=== PATIENT | female | born 1930 | race Caucasian/White ===

== ENCOUNTER 2017-02-27 15:53 | Inpatient (IN) | payer OTHER ==
[2017-02-27] MEDS ORDERED: ASPIRIN 81 MG CHEWABLE TABLETS PO ONE (16:22)
--- NOTE | 2017-02-27 16:22 | PDOC ---
History of Present Illness <Joanna Rasmussen - Last Filed: 02/27/17 20:26> <Stephanie Pop - Last Filed: 02/27/17 20:37> - General Chief Complaint: Syncope/Near Syncope Stated Complaint: Syncope/Near Syncope - History of Present Illness Initial Comments: 02/27/17 17:11 The patient is an 86 year old female with a past medical hx of CAD, s/p CABG, NIDDM, HTN, and HLD, heart failure (on digoxin), vertigo who presents to the ED via EMS with her yarn wrapper for evaluation of a syncopal episode this afternoon. The yarn wrapper reports she had a steroid injection into her right knee this afternoon by her Orthopedist. She was assisting the patient into the vehicle after the injection when the patient had a syncopal episode. The yarn wrapper held the patient up so she did not hit her head. The yarn wrapper notes the patient is usually alert and oriented x3 but she has been having episodes of confusion lately. The patient is a poor historian. The patient has complaints of chronic knee and back pain. The patient denies any chest pain, SOB, nausea, vomiting, abdominal pain. Surgical: CABG, cholecystectomy (Stephanie Pop) Past History - Past Medical History Cardiac Disorders: Yes CHF: Yes Diabetes: Yes HTN: Yes Hypercholesterolemia: Yes - Surgical History Cardiac Surgery: Yes ([facility]PASS) Cholecystectomy: Yes - Psycho/Social/Smoking Cessation Hx Anxiety: No Suicidal Ideation: No Smoking Status: No Smoking History: Never smoked Have you smoked in the past 12 months: No Number of Cigarettes Smoked Daily: 0 Hx Alcohol Use: No Drug/Substance Use Hx: No Substance Use Type: None Hx Substance Use Treatment: No <Joanna Rasmussen - Last Filed: 02/27/17 20:26> <Stephanie Pop - Last Filed: 02/27/17 20:37> - Past Medical History Allergies/Adverse Reactions: Allergies Allergy/AdvReac Type Severity Reaction Status Date / Time No Known Allergies Allergy Verified 02/27/17 16:33 Home Medications: Ambulatory Orders Aspirin [ASA -] 81 mg PO DAILY 11/24/12 Metoprolol Tartrate [Lopressor -] 50 mg PO BID 11/24/12 Multivitamin [Multivitamins] 1 each PO DAILY 11/24/12 Simvastatin [Zocor -] 40 mg PO DAILY 11/24/12 Sitagliptin Phos/Metformin HCl [Janumet 50-1,000 mg Tablet] 1 each PO BID Fenofibrate 160 mg PO DAILY 05/25/14 Montelukast Na [Singulair -] 10 mg PO HS 07/21/15 Esomeprazole Mag Trihydrate [Nexium] 20 mg PO DAILY 11/04/15 Meclizine HCl 25 mg PO TID 11/04/15 Cephalexin Monohydrate [Keflex -] 500 mg PO BID #14 capsule 04/15/16 Review of Systems <GradyJoannacarline Snider - Last Filed: 02/27/17 20:26> - Review of Systems Able to Perform ROS?: Yes <Stephanie Pop - Last Filed: 02/27/17 20:37> - Review of Systems Comments:: 02/27/17 17:11 CONSTITUTIONAL: +Confusion. Absent: fever, chills, diaphoresis, generalized weakness, malaise, loss of appetite HEENT: Absent: rhinorrhea, nasal congestion, throat pain, throat swelling, difficulty swallowing, mouth swelling, ear pain, eye pain, visual Changes CARDIOVASCULAR: +Syncope. Absent: chest pain, palpitations, irregular heart rate, lightheadedness, peripheral edema RESPIRATORY: Absent: cough, shortness of breath, dyspnea with exertion, orthopnea, wheezing, stridor, hemoptysis GASTROINTESTINAL: Absent: abdominal pain, abdominal distension, nausea, vomiting, diarrhea, constipation, melena, hematochezia GENITOURINARY: Absent: dysuria, frequency, urgency, hesitancy, hematuria, flank pain, genital pain MUSCULOSKELETAL: +Knee pain, back pain. Absent: joint swelling SKIN: Absent: rash, itching, pallor NEUROLOGIC: Absent: headache, focal weakness or paresthesias, dizziness, unsteady gait, seizure, bladder or bowel incontinence PSYCHIATRIC: Absent: anxiety, depression, suicidal or homicidal ideation, hallucinations. ( Stephanie Pop) *Physical Exam <Joanna Rasmussen - Last Filed: 02/27/17 20:26> <Stephanie Pop - Last Filed: 02/27/17 20:37> - Vital Signs Last Vital Signs Temp Pulse Resp BP Pulse Ox 99.3 F 74 18 185/73 100 02/27/17 15:53 02/27/17 15:53 02/27/17 15:53 02/27/17 15:53 02/27/17 15:53 - Physical Exam Comments: 02/27/17 17:11 GENERAL: +Global confusion, appropriate when answering questions. Well developed, well nourished. Awake. No acute distress. HEENT: Normocephalic, atraumatic. PERRLA, EOMI. No conjunctival pallor. Sclera are non- icteric. Moist mucous membranes. Oropharynx is clear. NECK: Supple. Full ROM. No JVD. Carotid pulses 2+ and symmetric, without bruits. No thyromegaly. No lymphadenopathy. CARDIOVASCULAR: +Holosystolic murmur. Regular rate. No rubs, or gallops. Distal pulses are 2+ and symmetric. PULMONARY: No evidence of respiratory distress. Lungs clear to auscultation bilaterally. No wheezing, rales or rhonchi. ABDOMINAL: +Protuberant. Soft. Non-tender. No rebound or guarding. No organomegaly. Normoactive bowel sounds. MUSCULOSKELETAL Normal range of motion at all joints. No bony deformities or tenderness. No CVA tenderness. EXTREMITIES: +Able to move all extremities. No cyanosis. No clubbing. No edema. No calf tenderness. SKIN: Warm and dry. Normal capillary refill. No rashes. No jaundice. NEUROLOGICAL: +Able to swallow water, alert, awake. Cranial nerves 2-12 intact. No deficits to light touch and temperature in face, upper extremities and lower extremities. No motor deficits in the in face, upper extremities and lower extremities. PSYCHIATRIC: Cooperative. (Stephanie Pop) Heart Score/ECG Review <Joanna Rasmussen - Last Filed: 02/27/17 20:26> <Stephanie Pop - Last Filed: 02/27/17 20:37> - ECG Impressions Comment:: 02/27/17 17:[address] Rasmussen NSR at a rate of 75 bpm LVH RBBB No change from prior (07/09/16) (Stephanie Pop) ED Treatment Course - LABORATORY CBC & Chemistry Diagram: 02/27/17 16:50 02/27/17 16:50 <Joanna Rasmussen - Last Filed: 02/27/17 20:26> - LABORATORY CBC & Chemistry Diagram: 02/27/17 16:50 02/27/17 16:50 <DimitriosmaryStephanie - Last Filed: 02/27/17 20:37> - ADDITIONAL ORDERS Additional order review: Laboratory Results 02/27/17 02/27/17 02/27/17 17:04 16:50 16:50 INR 1.03 Sodium 141 Potassium 4.5 Chloride 108 H Carbon Dioxide 24 Anion Gap 9 BUN 29 H Creatinine 1.3 H Creat Clearance w eGFR 38.66 POC Glucometer [phone] Random Glucose 108 H D Calcium 9.1 Magnesium 2.3 D Total Bilirubin 0.3 AST 22 ALT 20 D Alkaline Phosphatase 63 D Creatine Kinase 237 H D CK-MB (CK-2) 1.333 Troponin I < 0.02 B-Natriuretic Peptide 903.91 H Total Protein 7.1 Albumin 3.9 02/27/17 02/27/17 17:04 16:50 RBC 3.70 MCV 87.7 MCHC 32.7 RDW 14.0 MPV 7.9 Neutrophils % 62.3 D Lymphocytes % 26.2 D Monocytes % 5.3 Eosinophils % 5.5 H D Basophils % 0.7 POC Glucometer [id number] - RADIOLOGY Radiograph Interpretation: 02/27/17 18:30 Chest X-Ray Comparison studies: November 04, 2015 Trachea midline with mild cardiomegaly and mitral annulus calcification with aortic valve prosthesis in position. Mild uncoiling calcified aortic arch with no acute mediastinal widening. No congestive change or edema in the lungs No infiltrates, mass or effusion identified Degenerative changes noted in the shoulders No pneumothorax or rib fracture Impression: No infiltrate or edema in the lungs with no congestive change or pneumonia identified. No free air beneath the diaphragm No acute changes or suspicious findings identified. Reported By: Parker Retana MD 02/27/17 1708 02/27/17 18:56 CT brain without contrast Comparison studies: April 15, 2016 Clinical history: Syncope Axial imaging completed with comparison to previous exam demonstrating no evidence of acute intracranial pathology Moderate degree of diffuse cerebral atrophy with sulcal widening and ventricular dilation. Hypodense changes noted within the periventricular white matter consistent with chronic small vessel ischemia No evidence of fracture or acute bony abnormalities No suspicious osseous lesion with normal aeration in the sinuses and mastoids with a small osteoma in the left frontal sinus noted incidentally measuring 0.4 cm Normal region of orbits No hyperdense vessel No subdural or subarachnoid hemorrhage identified Impression: No CT evidence of mass, hemorrhage or acute vascular territory infarction. No acute interval changes seen since previous exam. Reported By: Parker Retana MD 02/27/17 [id number] (Stephanie Pop) - Medications Given in the ED: ED Medications Discontinued Medications Generic Name Dose Route Start Last Admin Trade Name Sanya PRN Reason Stop Dose Admin Aspirin 162 mg 02/27/17 16:22 02/27/17 16:52 Asa - PO 02/27/17 16:23 162 mg ONCE ONE Administration Medical Decision Making <Joanna Rasmussen - Last Filed: 02/27/17 20:26> <Stephanie Pop - Last Filed: 02/27/17 20:37> - Medical Decision Making 02/27/17 17:07 This 86-year-old female was brought in by ambulance for syncope. She had been to send received an injection in her right knee. Upon leaving the doctor's office. She was getting into a cab and she had a syncopal episode. Her aide was standing beside her and was able to sit her down. Therefore, she did not hit her head She has no focal neural deficits, but rather more of a global confusion. She is using all her extremities. She was able to hold a cup and drink water and swallow her pills. However, when asked about specific details of her fainting episode. She does not recall anything and was not aware that she was actually in the hospital BGM was in the 140s EKG was sinus rhythm in the 70s with right bundle branch block and an old LVH. There was no change since her EKG in 2016 She does complain of the leg and back pain and these are chronic complaints. She does not have any complaint of shortness of breath, chest pain Patient is not hypoglycemic. We will pursue cardiac workup and also rule out infection UTIs as a source of her confusion (Joanna Rasmussen) 02/27/17 20:[address] Hawkins at 20:08, awaiting call back Dr. Hawkins called back at 20:18, patients case was discussed (Stephanie Pop) *DC/Admit/Observation/Transfer - Discharge Dispostion Admit: Yes <Joanna Rasmussen - Last Filed: 02/27/17 20:26> <Stephanie Pop - Last Filed: 02/27/17 20:37> Diagnosis at time of Disposition: Syncope Qualifiers: Syncope type: unspecified Qualified Code(s): R55 - Syncope and collapse - Referrals Referrals: Noel Mcgee MD [Primary Care Provider] - - Attestations Scribe Attestion: 02/27/17 17:02 Documentation prepared by Stephanie Pop, acting as medical translator for Joanna Rasmussen MD/. (Stephanie Pop)
[2017-02-27] MEDS ORDERED: ASPIRIN 81 MG CHEWABLE TABLETS ONE (16:37)
[2017-02-27 17:22] LABS: BASOPHIL 0.7 % (0-2.0); EOSINOPHIL 5.5 % (0-4.5); MCH 28.6 pg (25.7-33.7); MCHC 32.7 g/dl (32.0-36.0); MEAN CELL VOLUME 87.7 fl (80-96); MEAN PLT VOLUME 7.9 fl (7.5-11.1); NEUTROPHILS 62.3 % (42.8-82.8); PLATELET COUNT 203 K/MM3 (134-434); WHITE BLOOD COUNT 6.9 K/mm3 (4.0-10.0)
[2017-02-27 17:47] LABS: INR 1.03 (0.82-1.09); PROTHROMBIN TIME (PATIENT) 11.3 SEC (9.98-11.88)
[2017-02-27 17:59] LABS: ALBUMIN 3.9 g/dl (3.4-5.0); ANION GAP 9 (8-16); BILIRUBIN,TOTAL 0.3 mg/dL (0.2-1.0); CALCIUM 9.1 mg/dL (8.5-10.1); CO2 24 mmol/L (21-32); CREATININE 1.3 mg/dL (0.55-1.02); GLUCOSE,RANDOM 108 mg/dL (74-106); MAGNESIUM 2.3 mg/dL (1.8-2.4); SGOT/AST 22 U/L (15-37); SGPT/ALT 20 U/L (12-78); TOT PROT 7.1 g/dl (6.4-8.2)
[2017-02-27 18:01] LABS: ALK PHOS 63 U/L (45-117); TROPONIN I < 0.02 ng/ml (0.00-0.05)
[2017-02-27] MEDS ORDERED: METOPROLOL TARTRATE 25 MG TABLET (FP) PO SCH (22:00)
[2017-02-27 22:30] LABS: URINE APPEARANCE CLEAR; URINE BILIRUBIN NEGATIVE (NEGATIVE); URINE COLOR LTYELLOW; URINE GLUCOSE (UA) NEGATIVE (NEGATIVE); URINE KETONE NEGATIVE (NEGATIVE); URINE LEUK ESTERASE NEGATIVE (NEGATIVE); URINE NITRITE NEGATIVE (NEGATIVE); URINE UROBILINOGEN NEGATIVE E.U./dl (0.2-1.0)
[2017-02-27] MEDS ORDERED: METOPROLOL TARTRATE 50 MG TABLET (FP) ONE (22:41)
[2017-02-27] MEDS ORDERED: HEPARIN NA (PORCINE) 5,000 UNITS/ML 1ML VIAL ONE ×2 (22:41→22:42)
[2017-02-27] MEDS ORDERED: MONTELUKAST NA 10 MG TABLET ONE (22:41)
[2017-02-27 22:42] LABS: URINE BACTERIA RARE /hpf (NONE SEEN); URINE BLOOD 2+ (NEGATIVE); URINE MUCUS RARE; URINE PROTEIN 1+ (NEGATIVE); URINE RBC 3 /hpf (0-3); URINE WBC 2 /hpf (3-5)
[2017-02-27] MEDS: MONTELUKAST NA 10 MG TABLET PO SCH (22:56)
[2017-02-27] MEDS: HEPARIN NA (PORCINE) 5,000 UNITS/ML 1ML VIAL SQ SCH (22:56)
[2017-02-28 03:46] VITALS: BMI 28.9
[2017-02-28 08:19] LABS: CHOLESTEROL 202 mg/dL (50-200); LDL CHOLESTEROL (ONLY SJRH) 111 mg/dL (5-100)
[2017-02-28 08:27] LABS: TROPONIN I < 0.02 ng/ml (0.00-0.05)
--- NOTE | 2017-02-28 10:17 | HP ---
Admitting History and Physical - Primary Care Physician PCP: Noel Mcgee - Admission Chief Complaint: Syncope History of Present Illness: ER HISTORY - General Chief Complaint: Syncope/Near Syncope Stated Complaint: Syncope/Near Syncope - History of Present Illness Initial Comments: 02/27/17 17:11 The patient is an 86 year old female with a past medical hx of CAD, s/p CABG, NIDDM, HTN, and HLD, heart failure (on digoxin), vertigo who presents to the ED via EMS with her oscillograph technician for evaluation of a syncopal episode this afternoon. The oscillograph technician reports she had a steroid injection into her right knee this afternoon by her Orthopedist. She was assisting the patient into the vehicle after the injection when the patient had a syncopal episode. The oscillograph technician held the patient up so she did not hit her head. The oscillograph technician notes the patient is usually alert and oriented x3 but she has been having episodes of confusion lately. The patient is a poor historian. The patient has complaints of chronic knee and back pain. The patient denies any chest pain, SOB, nausea, vomiting, abdominal pain. Surgical: CABG, cholecystectomy (Stephanie Pop) Pt examined by me in Telemetry Awake and alert speaks mostly Sinhala Denies any complaints except for right knee pain where she had injection placed Denies dysuria, chest pain , palpitations and headaches History Source: Patient Limitations to Obtaining History: No Limitations - Past Medical History Cardiovascular: Yes: CAD (CABG), HTN, Hyperlipdemia, Murmur Musculoskeletal: Yes: Osteoarthritis Endocrine: Yes: Diabetes Mellitus - Past Surgical History Past Surgical History: Yes: CABG, Cholecystectomy - Smoking History Smoking history: Never smoked Have you smoked in the past 12 months: No Aproximately how many cigarettes per day: 0 - Alcohol/Substance Use Hx Alcohol Use: No Home Medications - Allergies Allergies/Adverse Reactions: Allergies Allergy/AdvReac Type Severity Reaction Status Date / Time No Known Allergies Allergy Verified 02/27/17 16:33 - Home Medications Home Medications: Ambulatory Orders Unobtainable [Unobtainable] 02/27/17 Review of Systems - Review of Systems Constitutional: denies: Chills, Fever Cardiovascular: denies: Chest Pain, Palpitations, Shortness of Breath Respiratory: denies: Cough, SOB Musculoskeletal: reports: Joint Pain Physical Examination Vital Signs: Vital Signs Temperature 97.7 F 04/19/17 10:00 Pulse Rate 66 02/28/17 10:00 Respiratory Rate 18 02/28/17 10:00 Blood Pressure 133/74 02/28/17 10:00 O2 Sat by Pulse Oximetry (%) 100 02/28/17 02:40 Constitutional: Yes: No Distress, Calm Cardiovascular: Yes: Regular Rate and Rhythm, Murmur Respiratory: Yes: CTA Bilaterally Gastrointestinal: Yes: Normal Bowel Sounds, Soft, Abdomen, Obese. No: Distention, Tenderness Extremities: Yes: Other (right knee effusion- tender where she had injection , not hot) Edema: No Neurological: Yes: Alert, Oriented Psychiatric: Yes: WNL Labs: Laboratory Last Values WBC 6.9 K/mm3 (4.0-10.0) D 02/27/17 16:50 RBC 3.70 M/mm3 (3.60-5.2) 02/27/17 16:50 Hgb 10.6 GM/dL (10.7-15.3) L 02/27/17 16:50 Hct 32.4 % (32.4-45.2) 02/27/17 16:50 MCV 87.7 fl (80-96) 02/27/17 16:50 MCHC 32.7 g/dl (32.0-36.0) 02/27/17 16:50 RDW 14.0 % (11.6-15.6) 02/27/17 16:50 Plt Count 203 K/MM3 (134-434) 02/27/17 16:50 MPV 7.9 fl (7.5-11.1) 02/27/17 16:50 Neutrophils % 62.3 % (42.8-82.8) D 02/27/17 16:50 Lymphocytes % 26.2 % (8-40) D 02/27/17 16:50 Monocytes % 5.3 % (3.8-10.2) 02/27/17 16:50 Eosinophils % 5.5 % (0-4.5) H D 02/27/17 16:50 Basophils % 0.7 % (0-2.0) 02/27/17 16:50 INR 1.03 (0.82-1.09) 02/27/17 16:50 Sodium 141 mmol/L (136-145) 02/27/17 16:50 Potassium 4.5 mmol/L (3.5-5.1) 02/27/17 16:50 Chloride 108 mmol/L (98-107) H 02/27/17 16:50 Carbon Dioxide 24 mmol/L (21-32) 02/27/17 16:50 Anion Gap 9 (8-16) 02/27/17 16:50 BUN 29 mg/dL (7-18) H 02/27/17 16:50 Creatinine 1.3 mg/dL (0.55-1.02) H 02/27/17 16:50 Creat Clearance w eGFR 38.66 (>60) 02/27/17 16:50 POC Glucometer 141 UNITS (()) 02/28/17 17:01 Random Glucose 108 mg/dL (74-106) H D 02/27/17 16:50 Calcium 9.1 mg/dL (8.5-10.1) 02/27/17 16:50 Magnesium 2.3 mg/dL (1.8-2.4) D 02/27/17 16:50 Total Bilirubin 0.3 mg/dL (0.2-1.0) 02/27/17 16:50 AST 22 U/L (15-37) 02/27/17 16:50 ALT 20 U/L (12-78) D 02/27/17 16:50 Alkaline Phosphatase 63 U/L (45-117) D 02/27/17 16:50 Creatine Kinase 311 IU/L (26-192) H D 02/28/17 07:00 CK-MB (CK-2) 1.333 ng/ml (0.5-3.6) 02/27/17 16:50 Troponin I < 0.02 ng/ml (0.00-0.05) 02/28/17 07:00 B-Natriuretic Peptide 903.91 pg/ml (5-450) H 02/27/17 16:50 Total Protein 7.1 g/dl (6.4-8.2) 02/27/17 16:50 Albumin 3.9 g/dl (3.4-5.0) 02/27/17 16:50 Triglycerides 85 mg/dL (35-160) 02/28/17 07:00 Cholesterol 202 mg/dL (50-200) H 02/28/17 07:00 Total LDL Cholesterol 111 mg/dL (5-100) H 02/28/17 07:00 HDL Cholesterol 75 mg/dL (40-60) H 02/28/17 07:00 TSH 0.60 uIU/ml (0.358-3.74) 02/28/17 07:00 Urine Color Ltyellow 02/27/17 17:38 Urine Appearance Clear 02/27/17 17:38 Urine pH 5.0 (5.0-8.0) 02/27/17 17:38 Ur Specific [place] 1.012 (1.001-1.035) 02/27/17 17:38 Urine Protein 1+ (NEGATIVE) H 02/27/17 17:38 Urine Glucose (UA) Negative (NEGATIVE) 02/27/17 17:38 Urine Ketones Negative (NEGATIVE) 02/27/17 17:38 Urine Blood 2+ (NEGATIVE) H 02/27/17 17:38 Urine Nitrite Negative (NEGATIVE) 02/27/17 17:38 Urine Bilirubin Negative (NEGATIVE) 02/27/17 17:38 Urine Urobilinogen Negative E.U./dl (0.2-1.0) 02/27/17 17:38 Ur Leukocyte Esterase Negative (NEGATIVE) 02/27/17 17:38 Urine RBC 3 /hpf (0-3) 02/27/17 17:38 Urine WBC 2 /hpf (3-5) 02/27/17 17:38 Urine Bacteria Rare /hpf (NONE SEEN) 02/27/17 17:38 Urine Mucus Rare 02/27/17 17:38 Imaging - Results Chest X-ray: Image Reviewed (no infiltrate) Cat Scan: Report Reviewed (head ct negative) Ultrasound: Report Reviewed (carotid doppler- no stenosis) EKG: Image Reviewed (NSR, bifascicular block) Problem List - Problems (1) CAD (coronary artery disease) Code(s): I25.10 - ATHSCL HEART DISEASE OF [place] CORONARY ARTERY W/O ANG PCTRS Qualifiers: Coronary Disease-Associated Artery/Lesion type: [place] artery [place] vs. transplanted heart: [place] heart Associated angina: without angina Qualified Code(s): I25.10 - Atherosclerotic heart disease of [place] coronary artery without angina pectoris (2) CKD (chronic kidney disease) Code(s): N18.9 - CHRONIC KIDNEY DISEASE, UNSPECIFIED Qualifiers: Chronic kidney disease stage: stage 2 (mild) Qualified Code(s): N18.2 - Chronic kidney disease, stage 2 (mild) (3) S/P CABG (coronary artery bypass graft) Code(s): Z95.1 - PRESENCE OF AORTOCORONARY BYPASS GRAFT (4) Syncope Code(s): R55 - SYNCOPE AND COLLAPSE Qualifiers: Syncope type: unspecified Qualified Code(s): R55 - Syncope and collapse Assessment/Plan PLAN -- likely Vasovagal syncope -- negative Orthostasis -- Urine cultures pending, will treat empiricaly with Rocephin -- Cardiology evaluation -- check Echo -- continue with meds -- PT eval
[2017-02-28] MEDS: CEFTRIAXONE 50 ML IVPB SCH (10:18)
[2017-02-28] MEDS: PANTOPRAZOLE 20 MG TABLET (FP) PO SCH (10:21)
[2017-02-28] MEDS: ASPIRIN 81 MG CHEWABLE TABLETS PO SCH (10:21)
[2017-02-28] MEDS: MULTIVITAMINS (DAILY MVI) TABLET (FP) PO SCH (10:21)
[2017-02-28] MEDS: HEPARIN NA (PORCINE) 5,000 UNITS/ML 1ML VIAL SQ SCH ×2 (10:21→21:47)
[2017-02-28] MEDS: METOPROLOL TARTRATE 50 MG TABLET (FP) PO SCH ×2 (10:21→21:47)
--- NOTE | 2017-02-28 10:32 | PN ---
Progress Note (short form) - Note Progress Note: IMP: Syncope CAD s/p CABG DM Abnl ECG REC: Tele x 24 hours r/o arrhythmia or higher grade conduction dz Echo to r/o , murmur auscultated Hydrate gently
--- NOTE | 2017-02-28 11:47 | CONS ---
DATE OF CONSULTATION: 02/28/2017 REQUESTING PHYSICIAN: Angela Hogue MD REASON FOR CONSULTATION: Syncope. HISTORY OF PRESENT ILLNESS: This 86-year-old female with past history of CAD status post CABG, hypertension, diabetes, CHF, chronic vertigo, was brought to the ER via EMS after her rehabilitation construction specialist witnessed a syncopal episode after the patient had received a steroid injection in her right knee earlier in the afternoon. According to ER records, the patient was being assisted to her vehicle after the injection when she developed lightheadedness and had a syncopal episode. The patient has no recollection of this episode and denies chest pain or shortness of breath. The patient was held up by the rehabilitation construction specialist. There was no reported history of head trauma. CT scan of the head in the ER showed no acute findings. There is also a report of some recent confusion. Carotid duplex was performed and showed no significant stenosis. The patient was noted to have an abnormal baseline EKG with artifact, but seems to show sinus rhythm with right bundle branch block and left anterior hemiblock. PAST MEDICAL HISTORY: As above and also includes prior cholecystectomy. ALLERGIES: She has no known drug allergies. CURRENT MEDICATIONS: Include aspirin 81 daily, Lipitor 20 at bedtime, ceftriaxone IV started here in hospital, subcutaneous heparin, Lopressor 50 b.i.d., Singulair, multivitamin, and Protonix. FAMILY HISTORY: Noncontributory. SOCIAL HISTORY: Nonsmoker. PHYSICAL EXAMINATION: Vital signs: Afebrile, temperature 97.7, pulse 66, blood pressure 133/74, O2 100 on 2 L. HEENT: Anicteric. Neck: No bruits. Heart: S1, S2 regular. Soft systolic murmur, right sternal border. Previous median sternotomy clean, dry, and intact. Chest: Clear. Abdomen: Soft, nontender. Extremities: No edema. DIAGNOSTIC DATA: Head CT showed no acute findings. Chest x-ray showed no clear infiltrate. Carotid duplex showed no stenosis. White count 6.9, hematocrit 32, platelets 203. INR 1.03. Sodium 141, potassium 4.5, BUN 29, creatinine 1.3. CK 237, 311. Troponins are negative x2 sets. BNP was mildly elevated at 903. IMPRESSION: 1. Syncopal episode. 2. History of coronary artery disease status post coronary artery bypass grafting. 3. Diabetes. 4. Abnormal electrocardiogram. PLAN: 1. Continue telemetry for 24 hours to rule out higher grade AV block. 2. Follow up results of echocardiogram today to rule out aortic stenosis as there is a murmur auscultated on examination. The location and character of the murmur sound more like tricuspid regurgitation, but ruling out valvular disease is prudent. 3. Hydrate gently as BUN/creatinine ratio indicates slight prerenal azotemia, she does not appear volume overloaded on examination. The BNP value does not seem helpful in this clinical situation given her chronic history of CHF, it may represent her baseline. 4. Follow blood cultures and antibiotics as per primary medical team. Thank you for the consultation. SID FINN M.D. [id number]
--- NOTE | 2017-02-28 14:33 | EKG ---
Test Reason : Blood Pressure : / mmHG Vent. Rate : 075 BPM Atrial Rate : 075 BPM P-R Int : 186 ms QRS Dur : 156 ms QT Int : 448 ms P-R-T Axes : 062 -61 085 degrees QTc Int : 500 ms NORMAL SINUS RHYTHM RIGHT BUNDLE BRANCH BLOCK LEFT ANTERIOR FASCICULAR BLOCK BIFASCICULAR BLOCK LEFT VENTRICULAR HYPERTROPHY WITH REPOLARIZATION ABNORMALITY ABNORMAL ECG WHEN COMPARED WITH ECG OF 09-JUL-2016 14:21, CT INTERVAL HAS DECREASED Confirmed by MONICA MYRICK MD ([id number]) on 02/28/2017 2:32:37 PM Referred By: Confirmed By:MONICA MYRICK MD
[2017-02-28] MEDS: MONTELUKAST NA 10 MG TABLET PO SCH (21:47)
[2017-02-28] MEDS ORDERED: ATORVASTATIN CA 20 MG TABLET (FP) PO SCH (22:00)
--- NOTE | 2017-03-01 09:21 | PN ---
Progress Note, Physician Chief Complaint: Echo: Moderate to severe MR Moderate to severe TELE: Reviewed, baseline artifact. Appears to be NSR with baseline RBBB and frequent APCs History of Present Illness: More alert today - Current Medication List Current Medications: Active Medications Aspirin (Asa -) 81 mg PO DAILY [facility] Last Admin: 02/28/17 10:21 Dose: 81 mg Atorvastatin Calcium (Lipitor -) 20 mg PO HS [facility] Last Admin: 02/28/17 21:47 Dose: 20 mg Heparin Sodium (Porcine) (Heparin -) 5,000 unit SQ BID [facility] Last Admin: 02/28/17 21:47 Dose: 5,000 unit Ceftriaxone Sodium (Rocephin 1gm Ivpb (Pre-Docked)) 50 mls @ 100 mls/hr IVPB DAILY [facility] Last Admin: 02/28/17 10:18 Dose: 100 mls/hr Metoprolol Tartrate (Lopressor -) 50 mg PO BID [facility] Last Admin: 02/28/17 21:47 Dose: 50 mg Montelukast Sodium (Singulair -) 10 mg PO [facility] Last Admin: 02/28/17 21:47 Dose: 10 mg Multivitamins/Minerals/Vitamin C (Tab-A-Vit -) 1 tab PO DAILY [facility] Last Admin: 02/28/17 10:21 Dose: 1 tab Pantoprazole Sodium (Protonix -) 20 mg PO DAILY [facility] Last Admin: 02/28/17 10:21 Dose: 20 mg - Objective Vital Signs: Vital Signs Temperature 97.6 F 03/01/17 05:00 Pulse Rate 58 L 03/01/17 05:00 Respiratory Rate 16 03/01/17 05:00 Blood Pressure 145/64 03/01/17 05:00 O2 Sat by Pulse Oximetry (%) 100 02/28/17 21:31 Constitutional: Yes: No Distress Cardiovascular: Yes: Regular Rate and Rhythm Respiratory: Yes: CTA Bilaterally Gastrointestinal: Yes: Soft Edema: No Neurological: Yes: Alert Labs: INR, PTT INR 1.03 (0.82-1.09) 02/27/17 16:50 - ....Imaging EKG: Image Reviewed Assessment/Plan Syncope CAD s/p CABG DM Abnl ECG Echo with moderate to severe MR and Moderate to severe - "cannot rule out severe " reported. REC: Thus far, no evidence of high grade AV block, ventricular arrhythmias or marked bradycardia to explain syncopal episode. Will need to review echo today and determine severity, although based on reading, it may be difficult to make definitive statement based on this current study. If there is suspicion of truly severe based on our review, further diagnostic studies can be coordinated (R/L heart cath).
--- NOTE | 2017-03-01 10:53 | PN ---
Progress Note, Physician Chief Complaint: no distress feels well - Current Medication List Current Medications: Active Medications Aspirin (Asa -) 81 mg PO DAILY [facility] Last Admin: 02/28/17 10:21 Dose: 81 mg Atorvastatin Calcium (Lipitor -) 20 mg PO HS [facility] Last Admin: 02/28/17 21:47 Dose: 20 mg Heparin Sodium (Porcine) (Heparin -) 5,000 unit SQ BID [facility] Last Admin: 02/28/17 21:47 Dose: 5,000 unit Ceftriaxone Sodium (Rocephin 1gm Ivpb (Pre-Docked)) 50 mls @ 100 mls/hr IVPB DAILY [facility] Last Admin: 02/28/17 10:18 Dose: 100 mls/hr Metoprolol Tartrate (Lopressor -) 50 mg PO BID [facility] Last Admin: 02/28/17 21:47 Dose: 50 mg Montelukast Sodium (Singulair -) 10 mg PO HS [facility] Last Admin: 02/28/17 21:47 Dose: 10 mg Multivitamins/Minerals/Vitamin C (Tab-A-Vit -) 1 tab PO DAILY [facility] Last Admin: 02/28/17 10:21 Dose: 1 tab Pantoprazole Sodium (Protonix -) 20 mg PO DAILY [facility] Last Admin: 02/28/17 10:21 Dose: 20 mg - Objective Vital Signs: Vital Signs Temperature 97.6 F 03/01/17 05:00 Pulse Rate 58 L 03/01/17 05:00 Respiratory Rate 16 03/01/17 05:00 Blood Pressure 145/64 03/01/17 05:00 O2 Sat by Pulse Oximetry (%) 100 02/28/17 21:31 Constitutional: Yes: No Distress Cardiovascular: Yes: Regular Rate and Rhythm, Murmur, Other (chest scar) Respiratory: Yes: CTA Bilaterally Gastrointestinal: Yes: Normal Bowel Sounds, Soft. No: Distention, Tenderness Edema: No Labs: INR, PTT INR 1.03 (0.82-1.09) 02/27/17 16:50 Problem List - Problems (1) CAD (coronary artery disease) Code(s): I25.10 - ATHSCL HEART DISEASE OF [place] CORONARY ARTERY W/O ANG PCTRS Qualifiers: Coronary Disease-Associated Artery/Lesion type: [place] artery [place] vs. transplanted heart: [place] heart Associated angina: without angina Qualified Code(s): I25.10 - Atherosclerotic heart disease of [place] coronary artery without angina pectoris (2) CKD (chronic kidney disease) Code(s): N18.9 - CHRONIC KIDNEY DISEASE, UNSPECIFIED Qualifiers: Chronic kidney disease stage: stage 2 (mild) Qualified Code(s): N18.2 - Chronic kidney disease, stage 2 (mild) (3) S/P CABG (coronary artery bypass graft) Code(s): Z95.1 - PRESENCE OF AORTOCORONARY BYPASS GRAFT (4) Syncope Code(s): R55 - SYNCOPE AND COLLAPSE Qualifiers: Syncope type: unspecified Qualified Code(s): R55 - Syncope and collapse Assessment/Plan PLAN -- negative Orthostasis -- Urine cultures positive - on Rocephin -- Cardiology evaluation appreciated -- Echo-- mod to severe - ma need further intervention per Cardiology -- continue with meds -- PT eval
[2017-03-01] MEDS: CEFTRIAXONE 50 ML IVPB SCH (11:05)
[2017-03-01] MEDS: HEPARIN NA (PORCINE) 5,000 UNITS/ML 1ML VIAL SQ SCH (11:10)
[2017-03-01] MEDS: ASPIRIN 81 MG CHEWABLE TABLETS PO SCH (11:10)
[2017-03-01] MEDS: MULTIVITAMINS (DAILY MVI) TABLET (FP) PO SCH (11:10)
[2017-03-01] MEDS: PANTOPRAZOLE 20 MG TABLET (FP) PO SCH (11:10)
[2017-03-01] MEDS: METOPROLOL TARTRATE 50 MG TABLET (FP) PO SCH (11:10)
[2017-03-01 14:51] VITALS: BP 126/52; PULSE 58; TEMP 97.9
[2017-03-01 15:57] LABS: BASOPHIL 0.8 % (0-2.0); EOSINOPHIL 5.6 % (0-4.5); MCH 28.8 pg (25.7-33.7); MCHC 32.8 g/dl (32.0-36.0); MEAN CELL VOLUME 87.8 fl (80-96); MEAN PLT VOLUME 8.2 fl (7.5-11.1); NEUTROPHILS 47.9 % (42.8-82.8); PLATELET COUNT 188 K/MM3 (134-434); RDW 14.7 % (11.6-15.6); WHITE BLOOD COUNT 7.8 K/mm3 (4.0-10.0)
--- NOTE | 2017-03-01 16:14 | PN ---
Progress Note (short form) - Note Progress Note: Met with patient, her son, and with her daughter over the phone. [place] translation was provided by RN at pts request. Discussed the echo findings of possible severe with them. In light of this and her presentation with syncope , we have recommended that she undergo a cardiac cath to further evaluate her severity and for evaluation of CAD followed by consideration for AVR. Everyone agrees and pt is accepted at [facility] for transfer for procedure.
[2017-03-01 17:10] LABS: ALBUMIN 3.2 g/dl (3.4-5.0); CALCIUM 8.5 mg/dL (8.5-10.1); COCKROFT - GAULT 31.62; CREATININE 1.4 mg/dL (0.55-1.02)
[2017-03-01 17:11] LABS: BILIRUBIN,TOTAL 0.3 mg/dL (0.2-1.0); TOT PROT 5.9 g/dl (6.4-8.2)
--- NOTE | 2017-03-11 18:44 | DS ---
Physical Examination Vital Signs: Vital Signs Temperature 97.9 F 03/01/17 14:50 Pulse Rate 58 L 03/01/17 14:50 Respiratory Rate 16 03/01/17 14:50 Blood Pressure 126/52 03/01/17 14:50 O2 Sat by Pulse Oximetry (%) 95 03/01/17 11:01 Labs: CBC, BMP 03/01/17 15:00 03/01/17 15:00 Discharge Summary Reason For Visit: DIABETES MELLITUS,CHRONIC KIDNEY DISEASE,SYNCOPE Current Active Problems Acute kidney injury superimposed on CKD (Acute) Bradycardia (Acute) CAD (coronary artery disease) (Acute) CKD (chronic kidney disease) (Acute) Diastolic dysfunction (Acute) Heart failure (Acute) Hyperlipidemia (Acute) Pre-syncope (Acute) S/P CABG (coronary artery bypass graft) (Acute) Shoulder pain (Acute) Syncope (Acute) Trifascicular block (Acute) Hospital Course: transferred to [facility] for positive stress test - Instructions Referrals: Noel Mcgee MD [Primary Care Provider] - Disposition: TRANSFER ACUTE CARE/OTHER HOSP - Home Medications Comprehensive Discharge Medication List: Ambulatory Orders Unobtainable [Unobtainable] 02/27/17
== END 2017-03-01 18:30 | disposition short-term general hospital (02) | DRG 307 ==
LOC: JER 15:53 → JERBED 20:27 → OBSVTOIN 21:29 → J4S 02-28 02:37
PROVIDERS: ADMIT Internal Medicine; ATTEND Internal Medicine
DX: I35.0 Nonrheumatic aortic (valve) stenosis (principal); I13.0 Hypertensive heart and chronic kidney disease with heart failure and stage 1 through stage 4 chronic kidney disease, or unspecified chronic kidney disease; N39.0 Urinary tract infection, site not specified; I25.10 Atherosclerotic heart disease of native coronary artery without angina pectoris; Z95.1 Presence of aortocoronary bypass graft; E78.5 Hyperlipidemia, unspecified; E11.9 Type 2 diabetes mellitus without complications; I45.10 Unspecified right bundle-branch block; M54.9 Dorsalgia, unspecified; N18.2 Chronic kidney disease, stage 2 (mild); I50.9 Heart failure, unspecified; M25.461 Effusion, right knee; R55 Syncope and collapse; I34.0 Nonrheumatic mitral (valve) insufficiency; B96.20 Unspecified Escherichia coli [E. coli] as the cause of diseases classified elsewhere
CPT/HCPCS: 36415; 70450-TC; 71010-TC; 73560-TC-RT; 80053; 80061; 81003; 81015; 82550; 82553; 83721; 83735; 83880; 84443; 84484; 85025; 85610; 87086; 87186; 93005; 93010; 93306-TC; 93880-TC; 97116-GP; 99285-25; G0378; J1644

== ENCOUNTER 2017-04-10 15:55 | Emergency (ER) | payer OTHER ==
[2017-04-10] MEDS ORDERED: ONDANSETRON 4 MG/2 ML VIAL ONE ×2 (16:21→17:28)
[2017-04-10 16:25] VITALS: BMI 32.9
[2017-04-10] MEDS ORDERED: ONDANSETRON 4 MG/2 ML VIAL IVPB ONE (16:44)
[2017-04-10] MEDS ORDERED: methylPREDNISolone NA SUCC 125 MG/2 ML VIAL IVPB ONE (16:44)
[2017-04-10] MEDS ORDERED: MECLIZINE HCL 25 MG TABLET (FP) PO ONE (16:44)
[2017-04-10] MEDS ORDERED: ALBUTEROL SO4 0.083% IH SOL 2.5 MG/3 ML VIAL.NEB. NEB ONE ×2 (16:44→17:28)
[2017-04-10] MEDS ORDERED: ALBUTEROL SO4 2.5/IPRATROPIUM 0.5 INH SOL 3 ML VIAL.NEB. NEB ONE ×2 (16:44→17:28)
[2017-04-10] MEDS ORDERED: methylPREDNISolone NA SUCC 125 MG/2 ML VIAL ONE (17:28)
[2017-04-10] MEDS ORDERED: MECLIZINE HCL 25 MG TABLET (FP) ONE (17:28)
--- NOTE | 2017-04-10 17:37 | PDOC ---
History of Present Illness - History of Present Illness Initial Comments: 04/10/17 18:02 The patient is an 87 year old female, with a significant past medical history of , who presents to the emergency department with cough, intermittent dizziness, unsteady gait, and anxiety for about a week. The patient states her cough is non -productive yet persistent. She reports feeling unstable on her feet when she walks, however, admits that she does not walk much at home secondary to chronic right knee pain. She reports feeling as if she is swaying from side to side when she stands up. The patient's son reports his mother is seen by a visiting nurse daily. She denies having her current symptoms or her chronic knee pain evaluated by a physician. She denies chest pain, shortness of breath, headache. She denies fever, chills, nausea, vomit, diarrhea and constipation. She denies dysuria, frequency, urgency and hematuria. Allergies: NKDA Past surgical history: Social history: Lives at home (VNS daily) PCP - Dr. Mcgee <Esther Narayanan - Last Filed: 04/10/17 18:02> <Angel Mora - Last Filed: 04/10/17 19:05> - General Chief Complaint: Weakness Stated Complaint: SICK Time Seen by Provider: 04/10/17 16:31 Past History <Esther Narayanan - Last Filed: 04/10/17 18:02> - Past Medical History Anemia: No Asthma: No Cancer: No Cardiac Disorders: Yes (CABG, CAD) COPD: No CHF: Yes Dementia: No Diabetes: Yes HTN: Yes Hypercholesterolemia: Yes - Surgical History Cardiac Surgery: Yes (BYPASS) Cholecystectomy: Yes - Psycho/Social/Smoking Cessation Hx Anxiety: No Suicidal Ideation: No Smoking Status: No Smoking History: Never smoked Have you smoked in the past 12 months: No Number of Cigarettes Smoked Daily: 0 Information on smoking cessation initiated: No Hx Alcohol Use: No Drug/Substance Use Hx: No Substance Use Type: None Hx Substance Use Treatment: No <Angel Mora - Last Filed: 04/10/17 19:05> - Past Medical History Allergies/Adverse Reactions: Allergies Allergy/AdvReac Type Severity Reaction Status Date / Time No Known Allergies Allergy Verified 04/10/17 16:25 Home Medications: Ambulatory Orders Levofloxacin [Levaquin] 750 mg PO DAILY #10 tablet 04/10/17 Meclizine HCl [Antivert -] 25 mg PO TID #90 tablet 04/10/17 Review of Systems - Review of Systems Able to Perform ROS?: Yes Comments:: 04/10/17 18:07 GENERAL/CONSTITUTIONAL: No fever or chills. No weakness. HEAD, EYES, EARS, NOSE AND THROAT: No change in vision. No ear pain or discharge. No sore throat. CARDIOVASCULAR: No chest pain or shortness of breath. RESPIRATORY: (+) cough, No wheezing, or hemoptysis. GASTROINTESTINAL: No nausea, vomiting, diarrhea or constipation. GENITOURINARY: No dysuria, frequency, or change in urination. MUSCULOSKELETAL: No joint or muscle swelling or pain. No neck or back pain. SKIN: No rash NEUROLOGIC: (+) vertigo and unsteady gait. headache, loss of consciousness, or change in strength/sensation. ENDOCRINE: No increased thirst. No abnormal weight change. HEMATOLOGIC/LYMPHATIC: No anemia, easy bleeding, or history of blood clots. ALLERGIC/IMMUNOLOGIC: No hives or skin allergy. <Esther Narayanan - Last Filed: 04/10/17 18:02> *Physical Exam - Vital Signs Last Vital Signs Temp Pulse Resp BP Pulse Ox 98.7 F 66 20 175/61 100 04/10/17 16:20 04/10/17 16:20 04/10/17 16:20 04/10/17 16:20 04/10/17 16:20 - Physical Exam Comments: 04/10/17 18:07 GENERAL: Awake, alert, and fully oriented, in no acute distress HEAD: No signs of trauma EYES: PERRLA, EOMI, sclera anicteric, conjunctiva clear ENT: Auricles normal inspection, hearing grossly normal, nares patent, oropharynx clear without exudates. Moist mucosa NECK: Normal ROM, supple, no lymphadenopathy, JVD, or masses LUNGS: Breath sounds equal, clear to auscultation bilaterally. No wheezes, and no crackles HEART: Regular rate and rhythm, normal S1 and S2, no murmurs, rubs or gallops ABDOMEN: Soft, nontender, normoactive bowel sounds. No guarding, no rebound. No masses EXTREMITIES: Normal range of motion, no edema. No clubbing or cyanosis. No cords, erythema, or tenderness NEUROLOGICAL: Cranial nerves II through XII grossly intact. Normal speech, normal gait SKIN: Warm, Dry, normal turgor, no rashes or lesions noted. <Esther Narayanan - Last Filed: 04/10/17 18:02> - Vital Signs Last Vital Signs Temp Pulse Resp BP Pulse Ox 98.7 F 66 20 175/61 100 04/10/17 16:20 04/10/17 16:20 04/10/17 16:20 04/10/17 16:20 04/10/17 16:20 <Angel Mora - Last Filed: 04/10/17 19:05> ED Treatment Course - LABORATORY CBC & Chemistry Diagram: 04/10/17 17:00 04/10/17 17:00 - ADDITIONAL ORDERS Additional order review: 04/10/17 17:00 RBC 3.49 L MCV 86.9 MCHC 32.5 RDW 15.0 MPV 8.2 Neutrophils % 47.6 Lymphocytes % 39.6 Monocytes % 7.2 Eosinophils % 5.0 H Basophils % 0.6 - Medications Given in the ED: ED Medications Discontinued Medications Generic Name Dose Route Start Last Admin Trade Name Freq PRN Reason Stop Dose Admin Albuterol Sulfate 1 amp 04/10/17 16:44 04/10/17 17:26 Ventolin 0.083% Nebulizer Soln - NEB 04/10/17 16:45 1 amp ONCE ONE Administration Albuterol/Ipratropium 1 amp 04/10/17 16:44 04/10/17 17:26 Duoneb - NEB 04/10/17 16:45 1 amp ONCE ONE Administration Meclizine HCl 25 mg 04/10/17 16:44 04/10/17 17:26 Antivert - PO 04/10/17 16:45 25 mg ONCE ONE Administration Methylprednisolone Sodium Succinate 125 mg 04/10/17 16:44 04/10/17 17:26 Solu-Medrol - IVPB 04/10/17 16:45 125 mg ONCE ONE Administration Ondansetron HCl 4 mg 04/10/17 16:44 04/10/17 17:26 Zofran Injection IVPB 04/10/17 16:45 4 mg ONCE ONE Administration <Esther Narayanan - Last Filed: 04/10/17 18:02> - LABORATORY CBC & Chemistry Diagram: 04/10/17 17:00 04/10/17 17:00 - RADIOLOGY Radiology Studies Ordered: Category Date Time Status HEAD CT WITHOUT CONTRAST [CT] Stat CT Scan 04/10/17 16:47 Ordered CHEST X-RAY PORTABLE* [RAD] Stat Radiology 04/10/17 16:44 Taken - Medications Given in the ED: ED Medications Discontinued Medications Generic Name Dose Route Start Last Admin Trade Name Freq PRN Reason Stop Dose Admin Albuterol Sulfate 1 amp 04/10/17 16:44 04/10/17 17:26 Ventolin 0.083% Nebulizer Soln - NEB 04/10/17 16:45 1 amp ONCE ONE Administration Albuterol/Ipratropium 1 amp 04/10/17 16:44 04/10/17 17:26 Duoneb - NEB 04/10/17 16:45 1 amp ONCE ONE Administration Meclizine HCl 25 mg 04/10/17 16:44 04/10/17 17:26 Antivert - PO 04/10/17 16:45 25 mg ONCE ONE Administration Methylprednisolone Sodium Succinate 125 mg 04/10/17 16:44 04/10/17 17:26 Solu-Medrol - IVPB 04/10/17 16:45 125 mg ONCE ONE Administration Ondansetron HCl 4 mg 04/10/17 16:44 04/10/17 17:26 Zofran Injection IVPB 04/10/17 16:45 4 mg ONCE ONE Administration <Angel Mora - Last Filed: 04/10/17 19:05> *DC/Admit/Observation/Transfer - Attestations Scribe Attestion: 04/10/17 18:07 Documentation prepared by Esther Narayanan, acting as medical planner for Angel Mora DO <Esther Narayanan - Last Filed: 04/10/17 18:02> - Attestations Physician Attestion: 04/10/17 17:37 I, Dr. Angel Mora, attest that this document has been prepared under my direction and personally reviewed by me in its entirety. I further attest, that it accurately reflects all work, treatment, procedures and medical decision -making performed by me. <Angel Mora - Last Filed: 04/10/17 19:05> Diagnosis at time of Disposition: Bronchitis Sinusitis Qualifiers: Sinusitis location: pansinusitis Chronicity: subacute Qualified Code(s): J01.40 - Acute pansinusitis, unspecified Labyrinthitis Qualifiers: Laterality: unspecified laterality Qualified Code(s): H83.09 - Labyrinthitis, unspecified ear - Discharge Dispostion Disposition: HOME Condition at time of disposition: Good - Referrals Referrals: Noel Mcgee MD [Primary Care Provider] - - Patient Instructions Printed Discharge Instructions: DI for Meniere's Disease, DI for Vertigo, DI for Acute Bronchitis Additional Instructions: Stephanie- Levaquin is the antibiotic for bronchitis/cough Meclazine is for the dizziness See your doctor next week. Return to us if worse or new symptoms occur. David- Dr. Angel Mora
[2017-04-10 17:38] LABS: BASOPHIL 0.6 % (0-2.0); MCH 28.2 pg (25.7-33.7); MCHC 32.5 g/dl (32.0-36.0); MEAN CELL VOLUME 86.9 fl (80-96); MEAN PLT VOLUME 8.2 fl (7.5-11.1); NEUTROPHILS 47.6 % (42.8-82.8); PLATELET COUNT 202 K/MM3 (134-434); WHITE BLOOD COUNT 6.1 K/mm3 (4.0-10.0)
[2017-04-10 17:54] LABS: INR 1.05 (0.82-1.09); PROTHROMBIN TIME (PATIENT) 11.6 SEC (9.98-11.88)
[2017-04-10 18:03] LABS: ALBUMIN 3.6 g/dl (3.4-5.0); ANION GAP 7 (8-16); BILIRUBIN,TOTAL 0.2 mg/dL (0.2-1.0); CALCIUM 8.9 mg/dL (8.5-10.1); CO2 25 mmol/L (21-32); COCKROFT - GAULT 40.9615; CREATININE 1.2 mg/dL (0.55-1.02); GLUCOSE,RANDOM 94 mg/dL (74-106); SGOT/AST 26 U/L (15-37); SGPT/ALT 18 U/L (12-78); TOT PROT 6.6 g/dl (6.4-8.2)
[2017-04-10 18:06] LABS: ALK PHOS 60 U/L (45-117); TROPONIN I < 0.02 ng/ml (0.00-0.05)
[2017-04-10] MEDS ORDERED: LEVOFLOXACIN 750 MG IVPB 150 ML IVPB ONE ×2 (19:00→19:13)
[2017-04-10 20:14] VITALS: BP 159/62; PULSE 64; TEMP 98.6
--- NOTE | 2017-04-11 12:59 | EKG ---
Test Reason : Blood Pressure : / mmHG Vent. Rate : 067 BPM Atrial Rate : 067 BPM P-R Int : 192 ms QRS Dur : 158 ms QT Int : 470 ms P-R-T Axes : 074 -60 048 degrees QTc Int : 496 ms NORMAL SINUS RHYTHM LEFT AXIS DEVIATION RIGHT BUNDLE BRANCH BLOCK MINIMAL VOLTAGE CRITERIA FOR LVH, MAY BE NORMAL VARIANT ABNORMAL ECG WHEN COMPARED WITH ECG OF 27-FEB-2017 16:18, NONSPECIFIC T WAVE ABNORMALITY HAS REPLACED INVERTED T WAVES IN LATERAL LEADS Confirmed by ELEN VILLANUEVA, MONICA ([id number]) on 04/11/2017 12:58:46 PM Referred By: Confirmed By:MONICA MYRICK MD
--- NOTE | 2017-04-12 09:55 | PDOC ---
Patient Follow-up (Call Back) - Post ED Follow - Up Condition at time of discharge: Good Disposition at time of original discharge: HOME Reason for Call Back: Abnwl. Microbiology (04/10/17 blood culture in anerobic bottle + for gram + cocci in clusters, pt. discharge on levquin 750 mg daily for 10 days, antivert 25 mg tid, called her primary Dr. Noel Mcgee to report findings he will call pt. to follow up)
== END 2017-04-10 20:16 | disposition home or self-care (01) ==
LOC: JER 15:55
PROC: 3E0F7GC Introduction of Other Therapeutic Substance into Respiratory Tract, Via Natural or Artificial Opening (ICD-10-PCS; principal; 2017-04-10)
PROC: 3E0F7GC Introduction of Other Therapeutic Substance into Respiratory Tract, Via Natural or Artificial Opening (ICD-10-PCS; 2017-04-10)
PROC: 3E03329 Introduction of Other Anti-infective into Peripheral Vein, Percutaneous Approach (ICD-10-PCS; 2017-04-10)
PROC: 3E033GC Introduction of Other Therapeutic Substance into Peripheral Vein, Percutaneous Approach (ICD-10-PCS; 2017-04-10)
PROC: 3E0333Z Introduction of Anti-inflammatory into Peripheral Vein, Percutaneous Approach (ICD-10-PCS; 2017-04-10)
DX: J20.9 Acute bronchitis, unspecified (principal); J01.40 Acute pansinusitis, unspecified; H83.09 Labyrinthitis, unspecified ear; I25.10 Atherosclerotic heart disease of native coronary artery without angina pectoris; I11.0 Hypertensive heart disease with heart failure; Z95.1 Presence of aortocoronary bypass graft; E78.00 Pure hypercholesterolemia, unspecified; E11.9 Type 2 diabetes mellitus without complications
CPT/HCPCS: 36415; 70450-TC; 71010-TC; 80053; 82550; 83690; 84484; 85025; 85610; 87040; 87186; 93005; 93010; 94640; 96365; 96375; 99284-25

== ENCOUNTER 2017-04-21 06:54 | Emergency (ER) | payer OTHER ==
--- NOTE | 2017-04-21 07:03 | PDOC ---
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 Patient has been in ed in february and march for similar complaints and had 2 CTs of head negative for acute intracraneal pathology. EMS states she was found in bed complaining of R hip pain. EMS reports stable vitals. In ed patient regains some mental status, denies pain unless her RLE is touched, states she is unrure why she called EMS and is unsure whether she fell recently. The patient is a poor historian. She denies chest pain, SOB, n/v, abd pain. PSH: CABG, cholecystectomy Meds: Aspirin (Asa -) 81 mg PO DAILY [facility] Atorvastatin Calcium (Lipitor -) 20 mg PO HS [facility] Metoprolol Tartrate (Lopressor -) 50 mg PO BID [facility] Montelukast Sodium (Singulair -) 10 mg PO HS [facility] Multivitamins/Minerals/Vitamin C (Tab-A-Vit -) 1 tab PO DAILY [facility] Pantoprazole Sodium (Protonix -) 20 mg PO DAILY [facility] 04/21/17 07:28 04/21/17 07:37 04/21/17 07:59 04/21/17 08:20 Past History - Travel Traveled outside of the country in the last 30 days: No Close contact w/someone who was outside of country & ill: No - Past Medical History Allergies/Adverse Reactions: Allergies Allergy/AdvReac Type Severity Reaction Status Date / Time No Known Allergies Allergy Verified 04/10/17 16:25 Home Medications: Ambulatory Orders NK [No Known Home Medication] 04/21/17 Anemia: No Asthma: No Cancer: No Cardiac Disorders: Yes (CABG, CAD) COPD: No CHF: Yes Dementia: No Diabetes: Yes HTN: Yes Hypercholesterolemia: Yes - Surgical History Cardiac Surgery: Yes (BYPASS) Cholecystectomy: Yes - Psycho/Social/Smoking Cessation Hx Anxiety: No Suicidal Ideation: No Smoking Status: No Smoking History: Never smoked Have you smoked in the past 12 months: No Number of Cigarettes Smoked Daily: 0 Hx Alcohol Use: No Drug/Substance Use Hx: No Substance Use Type: None Hx Substance Use Treatment: No Review of Systems - Review of Systems Able to Perform ROS?: Yes (limited/dementia ) Is the patient limited Yi proficient: No Constitutional: No: Fever HEENTM: No: Throat Pain, Difficulty Swallowing Respiratory: No: Cough, Shortness of Breath Cardiac (ROS): No: Chest Pain ABD/GI: No: Nausea, Vomiting, Abdominal cramping : No: Dysuria Musculoskeletal: Yes: Joint Pain (rle), Muscle Pain (rle) Neurological: No: Headache All Other Systems: Reviewed and Negative *Physical Exam - Physical Exam Comments: 04/21/17 08:06 GENERAL: AWAKE, ALERT, DISORIENTED, SOMEWHAT LETHARGIC HEENT: PERRLA EOMI, NORMOCEPHALIC, ATRAUMATIC CV: RRR S1S2 GRADE 2 SYSTOLIC MURMUR, NO JVD PULM:MILD BIBASILAR CRACKLES, CTA OTHERWISE GI:SOFT, NONTENDER, NONDISTENDED, NORMOACTIVER BOWEL SOUNDS, NO MASS NEURO: CN GROSSLY INTACT, MOVES ALL EXTREMTIES, FACE SYMMETRICAL SKIN:DECREASED TURGOR, NO LESIONS ON EXTREMITIES MUSCULOSKELETAL: RLE SLIGHTLY MORE EDEMATOUS THAN LLE. NO LESIONS, 2+ DP B/L, SEVERE RLE CALF, KNEE, THIGH AND HIP TENDERNESS 04/21/17 08:08 04/21/17 10:51 ED Treatment Course - LABORATORY CBC & Chemistry Diagram: 04/21/17 07:33 04/21/17 07:33 Medical Decision Making - Medical Decision Making 04/21/17 08:10 CBC unremarkable CMP unremarkable (creat elevated 1.5 but at baseline compared to previous labs) R hip and knee x rays unremarkable for fracture, positive for DJD vascular duplex negative for JVD, there is a R popliteal cyst that may be source of chronic knee pain. CT head not indicated, parient is at baseline mental status per daughter; had a recent negative CT head in january and february home medications reviewed, there is nothing to explain altered mental status. this appears to be patients chronic set of complaints 04/21/17 08:18 04/21/17 08:20 digoxin level adequate 04/21/17 09:13 04/21/17 09:33 04/21/17 09:43 will give tylenol and recommend f/u with orhopedist outpatient 04/21/17 11:03 *DC/Admit/Observation/Transfer Diagnosis at time of Disposition: Right leg pain - Discharge Dispostion Disposition: HOME Condition at time of disposition: Good Admit: No - Patient Instructions Additional Instructions: WE evaluated your right leg. you do not have any fractures or blood clots. Please follow up with an orthopedic surgeon for further management.
[2017-04-21 07:46] LABS: BASOPHIL 0.8 % (0-2.0); EOSINOPHIL 3.7 % (0-4.5); MCH 28.4 pg (25.7-33.7); MCHC 32.7 g/dl (32.0-36.0); MEAN CELL VOLUME 86.9 fl (80-96); MEAN PLT VOLUME 7.4 fl (7.5-11.1); NEUTROPHILS 63.9 % (42.8-82.8); PLATELET COUNT 195 K/MM3 (134-434); RDW 14.9 % (11.6-15.6); WHITE BLOOD COUNT 7.2 K/mm3 (4.0-10.0)
[2017-04-21 07:51] VITALS: BP 135/57; PULSE 91; TEMP 99.3; BMI 31.2
[2017-04-21 08:11] LABS: ALBUMIN 3.7 g/dl (3.4-5.0); BILIRUBIN,TOTAL 0.5 mg/dL (0.2-1.0); CALCIUM 9.2 mg/dL (8.5-10.1); COCKROFT - GAULT 29.1295; CREATININE 1.5 mg/dL (0.55-1.02); MAGNESIUM 2.2 mg/dL (1.8-2.4); TOT PROT 6.7 g/dl (6.4-8.2)
[2017-04-21 09:12] LABS: DIGOXIN LEVEL 0.0962 ng/ml (0.8-2.0)
--- NOTE | 2017-04-21 09:37 | PDOC ---
Attending Attestation - Resident Resident Name: Sandra Sevilla - ED Attending Attestation I have performed the following: I have examined & evaluated the patient, The case was reviewed & discussed with the resident, I agree w/resident's findings & plan - HPI HPI: 04/21/17 09:44 87y F hx of afib, chronic knee pain, presents with complaint of atruamtatic R knee pain. Pt has bene evaluted by pmd in the past and has been having joing injections. On exam pt has some tnedneress to the medial aspect of the R knee, no pain or tendernses on ROM, no associated back pain. Pts xray i snegtaive here. The pt was noted to have some mental status changes when they arrived whre she coulw complain of some pain then become less responsive, i suspect pt was likely sleeping due to the hr. The pts mental status is currently normal. will dc the pt to fu with pmd return precautions were discussed I discussed the physical exam findings, ancillary test results and final diagnoses with the patient. I answered all of the patient's questions. The patient was satisfied with the care received and felt comfortable with the discharge plan and treatment plan. The patient will call their primary care physician within 24 hours to arrange follow-up and will return to the Emergency Department with any new, persistent or worsening symptoms. - Physicial Exam PE: 04/22/17 07:49 see above - Medical Decision Making 04/22/17 07:49 see above Heart Score/ECG Review - ECG Impressions Comment:: 04/21/17 15:10 Twelve-lead EKG was performed and reviewed by me. There is normal sinus rhythm with a normal rate. Rate of 88 Left axis deviation RBBB LVH with repolarization abnormality
[2017-04-21] MEDS ORDERED: ACETAMINOPHEN 325 MG TABLET (FP) PO ONE (09:43)
[2017-04-21] MEDS ORDERED: ACETAMINOPHEN 325 MG TABLET (FP) ONE (09:58)
--- NOTE | 2017-04-21 15:26 | EKG ---
Test Reason : Blood Pressure : / mmHG Vent. Rate : 088 BPM Atrial Rate : 088 BPM P-R Int : 192 ms QRS Dur : 156 ms QT Int : 410 ms P-R-T Axes : 089 -55 083 degrees QTc Int : 496 ms NORMAL SINUS RHYTHM LEFT AXIS DEVIATION RIGHT BUNDLE BRANCH BLOCK LEFT VENTRICULAR HYPERTROPHY WITH REPOLARIZATION ABNORMALITY ABNORMAL ECG WHEN COMPARED WITH ECG OF 10-APR-2017 17:23, T WAVE AMPLITUDE HAS INCREASED IN ANTERIOR LEADS INVERTED T WAVES HAVE REPLACED NONSPECIFIC T WAVE ABNORMALITY IN LATERAL LEADS CLINICAL CORRELATION IS RECOMMENDED Confirmed by TOREY VILLANUEVA, AYANA ([id number]) on 04/21/2017 3:25:56 PM Referred By: Confirmed By:AYANA LEMA MD
== END 2017-04-21 11:18 | disposition home or self-care (01) ==
LOC: JER 06:54
DX: M79.604 Pain in right leg (principal); M17.11 Unilateral primary osteoarthritis, right knee; I25.10 Atherosclerotic heart disease of native coronary artery without angina pectoris; I10 Essential (primary) hypertension; Z95.1 Presence of aortocoronary bypass graft; E11.9 Type 2 diabetes mellitus without complications; E78.5 Hyperlipidemia, unspecified; I50.9 Heart failure, unspecified; Z79.82 Long term (current) use of aspirin
CPT/HCPCS: 36415; 73502-TC-RT; 73560-TC-RT; 80053; 80162; 83735; 85025; 93005; 93010; 93971-TC; 99281-25

== ENCOUNTER 2017-05-26 12:46 | Observation (INO) | payer OTHER ==
--- NOTE | 2017-05-26 13:09 | PDOC ---
History of Present Illness - General History Source: Patient, Family, Old Records Exam Limitations: No Limitations - History of Present Illness Initial Comments: 05/26/17 13:47 The patient is an 87 year old female with a significant past medical history of hypertension, hyperlipidemia, aortic stenosis, CHF s/p CABG, diabetes, vertigo, and chronic R knee pain, brought by ambulance to the Emergency Department with productive cough for one week. The patient reports that she has had a cough producing phlegm for one week, and reports that the cough leaves her short of breath. As per EMS, the patient was coughing in the ambulance and had a syncopal episode. The patient also states that she feels as if something is caught in her throat, which makes her nauseous. She admits to a headache. Patient is a poor historian. As per the patients son, the patient lives alone with a home health aid in the mornings. Patient admits to chronic right knee pain. The patient denies chest pain, palpitations, and diaphoresis. Patient denies vomiting, or diarrhea. Patient denies visual changes. Patient denies hemoptysis. Surgical Hx: CABG, cholecystectomy <Lyn Lewis - Last Filed: 05/26/17 15:54> <Amarilys Andrade - Last Filed: 05/26/17 17:17> - General Chief Complaint: Lightheaded Stated Complaint: ELEVATED BP Time Seen by Provider: 05/26/17 13:09 Past History <Lyn Lewis - Last Filed: 05/26/17 15:54> - Past Medical History Anemia: No Asthma: No Cancer: No Cardiac Disorders: Yes (CABG, CAD) COPD: No CHF: Yes Dementia: No Diabetes: Yes HTN: Yes Hypercholesterolemia: Yes - Surgical History Abdominal Surgery: Yes Cardiac Surgery: Yes (BYPASS) Cholecystectomy: Yes - Psycho/Social/Smoking Cessation Hx Anxiety: No Suicidal Ideation: No Smoking Status: No Smoking History: Never smoked Have you smoked in the past 12 months: No Number of Cigarettes Smoked Daily: 0 Hx Alcohol Use: No Drug/Substance Use Hx: No Substance Use Type: None Hx Substance Use Treatment: No <Amarilys Andrade - Last Filed: 05/26/17 17:17> - Past Medical History Allergies/Adverse Reactions: Allergies Allergy/AdvReac Type Severity Reaction Status Date / Time No Known Allergies Allergy Verified 05/26/17 13:03 Home Medications: Ambulatory Orders Unobtainable [Unobtainable] 05/26/17 Review of Systems - Review of Systems Able to Perform ROS?: Yes Comments:: 05/26/17 13:47 CONSTITUTIONAL: Absent: fever, no chills, no fatigue EYES: Absent: visual changes ENT: Present: + throat discomfort Absent: ear pain, no sore throat CARDIOVASCULAR: Absent: chest pain, no palpitations RESPIRATORY: Present: + productive cough, + shortness of breath Absent: hemoptysis GI: Present: + nausea Absent: abdominal pain, no vomiting, no constipation, no diarrhea GENITOURINARY: Absent: dysuria, no frequency, no hematuria MUSCULOSKELETAL: Present: + right knee pain (chronic) Absent: back pain, no myalgia SKIN: Absent: rash NEURO: Presnent: + headache Absent: visual changes <Lyn Lewis - Last Filed: 05/26/17 15:54> *Physical Exam - Vital Signs Last Vital Signs Temp Pulse Resp BP Pulse Ox 98.6 F 84 18 152/74 100 05/26/17 13:00 05/26/17 13:16 05/26/17 13:16 05/26/17 13:16 05/26/17 13:16 - Physical Exam Comments: 05/26/17 13:50 GENERAL: Well developed, well nourished. Awake and alert. No acute distress. HEENT: No erythma, no exudates of throat. Normocephalic, atraumatic. PERRLA, EOMI. No conjunctival pallor. Sclera are non-icteric. Moist mucous membranes. Oropharynx is clear. NECK: Supple. Full ROM. No JVD. Carotid pulses 2+ and symmetric, without bruits. No thyromegaly. No lymphadenopathy. CARDIOVASCULAR: Regular rate and rhythm. No murmurs, rubs, or gallops. Distal pulses are 2+ and symmetric. PULMONARY: No evidence of respiratory distress. Lungs clear to auscultation bilaterally. No wheezing, rales or rhonchi. ABDOMINAL: Soft. Non-tender. Non-distended. No rebound or guarding. No organomegaly. Normoactive bowel sounds. MUSCULOSKELETAL Normal range of motion at all joints. No bony deformities. Right knee tenderness. No CVA tenderness. EXTREMITIES: No cyanosis. No clubbing. No edema. No calf tenderness. SKIN: Warm and dry. Normal capillary refill. No rashes. No jaundice. NEUROLOGICAL: Alert, awake, appropriate. Cranial nerves 2-12 intact. No focal neurological deficits. <Lyn Lewis - Last Filed: 05/26/17 15:54> - Vital Signs Last Vital Signs Temp Pulse Resp BP Pulse Ox 98.6 F 69 18 185/77 99 05/26/17 13:00 05/26/17 13:00 05/26/17 13:00 05/26/17 13:00 05/26/17 13:00 <Amarilys Andrade - Last Filed: 05/26/17 17:17> ED Treatment Course - LABORATORY CBC & Chemistry Diagram: 05/26/17 13:55 05/26/17 13:55 - RADIOLOGY Radiograph Interpretation: 05/26/17 15:30 Chest XRay As reviewed by Dr. Christiano De Santiago IMPRESSION: Previous OHS. No acute chest pathology. <Lyn Lewis - Last Filed: 05/26/17 15:54> - LABORATORY CBC & Chemistry Diagram: 05/26/17 13:55 05/26/17 13:55 <Amarilys Andrade - Last Filed: 05/26/17 17:17> Medical Decision Making - Medical Decision Making 05/26/17 15:54 Dr. Mcgee was called at his office at 3:54. Dr. Murcia is transportation consultant. Awaiting call back. <Lyn Lewis - Last Filed: 05/26/17 15:54> - Medical Decision Making 05/26/17 16:31 Pt presents to the ED complaining of syncope after prolonged coughing spell. This may be vasovagal, but given history of aortic stenosis, I will admit her for syncope work up. EKG and CXR are unchanged. Labs are within normal limits. Case discussed with Andie Hawkins, who has accepted the patient. <Amarilys Andrade - Last Filed: 05/26/17 17:17> *DC/Admit/Observation/Transfer - Attestations Scribe Attestion: 05/26/17 13:52 Documentation prepared by Lyn Lewis, acting as medical technicians for Amarilys Andrade MD. <Lyn Lewis - Last Filed: 05/26/17 15:54> - Discharge Dispostion Admit: Yes <Amarilys Andrade - Last Filed: 05/26/17 17:17> Diagnosis at time of Disposition: Syncope Qualifiers: Syncope type: unspecified Qualified Code(s): R55 - Syncope and collapse - Referrals Referrals: Noel Mcgee MD [Primary Care Provider] -
[2017-05-26 14:02] LABS: BASOPHIL 0.7 % (0-2.0); EOSINOPHIL 5.8 % (0-4.5); MCH 28.6 pg (25.7-33.7); MCHC 32.9 g/dl (32.0-36.0); MEAN CELL VOLUME 86.8 fl (80-96); MEAN PLT VOLUME 7.5 fl (7.5-11.1); NEUTROPHILS 54.1 % (42.8-82.8); PLATELET COUNT 190 K/MM3 (134-434); RDW 14.4 % (11.6-15.6); WHITE BLOOD COUNT 6.4 K/mm3 (4.0-10.0)
[2017-05-26 14:16] LABS: ALBUMIN 3.7 g/dl (3.4-5.0); ANION GAP 8 (8-16); BILIRUBIN,TOTAL 0.3 mg/dL (0.2-1.0); CALCIUM 9.3 mg/dL (8.5-10.1); CO2 26 mmol/L (21-32); CREATININE 1.2 mg/dL (0.55-1.02); GLUCOSE,RANDOM 105 mg/dL (74-106); SGOT/AST 20 U/L (15-37); SGPT/ALT 20 U/L (12-78); TOT PROT 6.6 g/dl (6.4-8.2)
[2017-05-26 14:18] LABS: ALK PHOS 55 U/L (45-117); TROPONIN I < 0.02 ng/ml (0.00-0.05)
[2017-05-26] MEDS ORDERED: ACETAMINOPHEN 325 MG TABLET (FP) PO PRN (23:44)
--- NOTE | 2017-05-27 11:32 | HP ---
Admitting History and Physical - Primary Care Physician PCP: Noel Mcgee - Admission Chief Complaint: cough/ syncopal episode History of Present Illness: The patient is an 87 year old female with a significant past medical history of hypertension, hyperlipidemia, severe aortic stenosis, CHF s/p CABG, diabetes, vertigo, and chronic R knee pain, brought by ambulance to the Emergency Department with productive cough for one week. The patient reports that she has had a cough producing phlegm for one week, and reports that the cough leaves her short of breath. As per EMS, the patient was coughing in the ambulance and had a syncopal episode. The patient also states that she feels as if something is caught in her throat, which makes her nauseous. She admits to a headache. Patient is a poor historian. Patient lives alone with a home health aid in the mornings. The patient denies chest pain, palpitations, and diaphoresis. Patient denies vomiting, or diarrhea. Patient denies visual changes. Patient denies hemoptysis. Surgical Hx: CABG, cholecystectomy in er - cxr -ve--pt afebrile exan benign pt admitted for observation Pt was recently transferred 02/26 from here to [facility] for cath . case was discussed with er physician last night Pt seen today awake/ comfortable no distress chart reviewed multiple attempts to get list of meds --not successful so far History Source: Medical Record Limitations to Obtaining History: Poor Historian - Past Medical History Cardiovascular: Yes: CAD (CABG), HTN, Hyperlipdemia, Murmur ...: No Musculoskeletal: Yes: Osteoarthritis Endocrine: Yes: Diabetes Mellitus - Past Surgical History Past Surgical History: Yes: CABG, Cholecystectomy - Smoking History Smoking history: Never smoked Have you smoked in the past 12 months: No Aproximately how many cigarettes per day: 0 - Alcohol/Substance Use Hx Alcohol Use: No Home Medications - Allergies Allergies/Adverse Reactions: Allergies Allergy/AdvReac Type Severity Reaction Status Date / Time No Known Allergies Allergy Verified 05/26/17 13:03 - Home Medications Home Medications: Ambulatory Orders Unobtainable [Unobtainable] 05/26/17 Review of Systems Unable to obtain ROS, reason: see [place] - Review of Systems Eyes: reports: No Symptoms HENT: reports: No Symptoms Neck: reports: No Symptoms Cardiovascular: reports: No Symptoms Respiratory: reports: Cough Genitourinary: reports: No Symptoms Neurological: reports: Syncope. denies: No Symptoms Psychiatric: reports: No Symptoms Physical Examination Vital Signs: Vital Signs Temperature 98.2 F 05/27/17 08:00 Pulse Rate 92 H 05/27/17 08:00 Respiratory Rate 14 05/27/17 08:00 Blood Pressure 152/90 05/27/17 08:00 O2 Sat by Pulse Oximetry (%) 96 05/27/17 09:00 Constitutional: Yes: No Distress, Calm Eyes: Yes: Conjunctiva Clear Neck: Yes: Supple Cardiovascular: Yes: Regular Rate and Rhythm Respiratory: Yes: CTA Bilaterally Gastrointestinal: Yes: Normal Bowel Sounds, Soft Edema: No Neurological: Yes: Alert, Other (non focal) Psychiatric: Yes: Alert Imaging - Results Chest X-ray: Report Reviewed Problem List - Problems (1) S/P CABG (coronary artery bypass graft) Code(s): Z95.1 - PRESENCE OF AORTOCORONARY BYPASS GRAFT (2) Syncope Code(s): R55 - SYNCOPE AND COLLAPSE Qualifiers: Syncope type: unspecified Qualified Code(s): R55 - Syncope and collapse (3) Diabetes Code(s): E11.9 - TYPE 2 DIABETES MELLITUS WITHOUT COMPLICATIONS Qualifiers: Diabetes mellitus type: type 2 Diabetes mellitus complication status: without complication Qualified Code(s): E11.9 - Type 2 diabetes mellitus without complications (4) Hypertension Code(s): I10 - ESSENTIAL (PRIMARY) HYPERTENSION Qualifiers: Hypertension type: essential hypertension Qualified Code(s): I10 - Essential (primary) hypertension Assessment/Plan Likely vasovagal. monitor on tele ordered some basic meds- looking at previous meds in system cardiology to follow monitor bgm monitor bp. will follow discussed with nursing staff also.
[2017-05-27] MEDS: ASPIRIN COATED 81 MG TABLET.EC PO SCH (11:56)
[2017-05-27] MEDS: METOPROLOL TARTRATE 50 MG TABLET (FP) PO SCH ×2 (11:56→22:11)
[2017-05-27] MEDS: ENALAPRIL MALEATE 10 MG TABLET (FP) PO SCH (11:56)
[2017-05-27 12:00] LABS: BASOPHIL 0.6 % (0-2.0); MCH 28.8 pg (25.7-33.7); MEAN CELL VOLUME 87.3 fl (80-96); MEAN PLT VOLUME 7.5 fl (7.5-11.1); NEUTROPHILS 60.4 % (42.8-82.8); PLATELET COUNT 201 K/MM3 (134-434); RDW 14.5 % (11.6-15.6); WHITE BLOOD COUNT 6.7 K/mm3 (4.0-10.0)
--- NOTE | 2017-05-27 12:11 | CON.CARD ---
Consult Consult Specialty:: Cardiology consult for dr. Haji - History of Present Illness History of Present Illness: The patient is an 87 year old female with a significant past medical history of hypertension, hyperlipidemia, aortic stenosis, CHF s/p CABG, diabetes, vertigo, and chronic R knee pain, brought by ambulance to the Emergency Department with productive cough for one week. The patient reports that she has had a cough producing phlegm for one week, and reports that the cough leaves her short of breath. As per EMS, the patient was coughing in the ambulance and had a syncopal episode. The patient also states that she feels as if something is caught in her throat, which makes her nauseous. She admits to a headache. Patient is a poor historian. As per the patients son, the patient lives alone with a home health aid in the mornings. Patient admits to chronic right knee pain. The patient denies chest pain, palpitations, and diaphoresis. Patient denies vomiting, or diarrhea. Patient denies visual changes. Patient denies hemoptysis. Surgical Hx: CABG, cholecystectomy - History Source History Provided By: Patient, Medical Record - Past Medical History Cardio/Vascular: Yes: CAD (CABG), HTN, Hyperlipdemia, Murmur ...: No Musculoskeletal: Yes: Osteoarthritis Endocrine: Yes: Diabetes Mellitus - Past Surgical History Past Surgical History: Yes: CABG, Cholecystectomy - Alcohol/Substance Use Hx Alcohol Use: No - Smoking History Smoking history: Never smoked Have you smoked in the past 12 months: No Aproximately how many cigarettes per day: 0 Home Medications - Allergies Allergies/Adverse Reactions: Allergies Allergy/AdvReac Type Severity Reaction Status Date / Time No Known Allergies Allergy Verified 05/26/17 13:03 - Home Medications Home Medications: Ambulatory Orders Unobtainable [Unobtainable] 05/26/17 Review of Systems - Review of Systems Constitutional: reports: No Symptoms Eyes: reports: No Symptoms HENT: reports: No Symptoms Neck: reports: No Symptoms Cardiovascular: reports: Shortness of Breath Respiratory: reports: SOB Gastrointestinal: reports: No Symptoms Genitourinary: reports: No Symptoms Breasts: reports: No Symptoms Reported Musculoskeletal: reports: No Symptoms Integumentary: reports: No Symptoms Neurological: reports: No Symptoms Endocrine: reports: No Symptoms Hematology/Lymphatic: reports: No Symptoms Psychiatric: reports: No Symptoms Vital Signs: Vital Signs Temperature 98.2 F 05/27/17 08:00 Pulse Rate 92 H 05/27/17 08:00 Respiratory Rate 14 05/27/17 08:00 Blood Pressure 152/90 05/27/17 08:00 O2 Sat by Pulse Oximetry (%) 96 05/27/17 09:00 Constitutional: Yes: Well Nourished, No Distress, Calm Eyes: Yes: WNL, Conjunctiva Clear, EOM Intact HENT: Yes: WNL, Atraumatic, Normocephalic Neck: Yes: WNL, Supple, Trachea Midline Respiratory: Yes: Diminished Gastrointestinal: Yes: WNL, Normal Bowel Sounds Renal/: Yes: WNL Cardiovascular: Yes: WNL, Regular Rate and Rhythm Heart Sounds: Yes: S1, S2 Murmur: Yes: Systolic Murmur Musculoskeletal: Yes: WNL Extremities: Yes: WNL Integumentary: Yes: WNL Neurological: Yes: WNL, Alert, Oriented ...Motor Strength: WNL Psychiatric: Yes: WNL, Alert, Oriented - Other Data Labs, Other Data: CBC, BMP 05/27/17 11:40 Laboratory Tests 05/26/17 05/26/17 05/26/17 13:55 13:55 14:10 WBC 6.4 RBC 3.97 Hgb 11.3 Hct 34.5 MCV 86.8 MCH 28.6 MCHC 32.9 RDW 14.4 Plt Count 190 MPV 7.5 Neutrophils % 54.1 Lymphocytes % 32.3 D Monocytes % 7.1 Eosinophils % 5.8 H Basophils % 0.7 Sodium 141 Potassium 4.3 Chloride 107 Carbon Dioxide 26 Anion Gap 8 BUN 22 H Creatinine 1.2 H Creat Clearance w eGFR 42.30 POC Glucometer Random Glucose 105 D Lactic Acid 0.8 Calcium 9.3 Total Bilirubin 0.3 D AST 20 ALT 20 Alkaline Phosphatase 55 Creatine Kinase 105 Troponin I < 0.02 Total Protein 6.6 Albumin 3.7 05/26/17 05/27/17 05/27/17 20:37 05:53 11:40 WBC 6.7 RBC 4.03 Hgb 11.6 Hct 35.2 MCV 87.3 MCH 28.8 MCHC 33.0 RDW 14.5 Plt Count 201 MPV 7.5 Neutrophils % 60.4 Lymphocytes % 26.9 Monocytes % 8.1 Eosinophils % 4.0 Basophils % 0.6 Sodium Potassium Chloride Carbon Dioxide Anion Gap BUN Creatinine Creat Clearance w eGFR POC Glucometer 100 114 Random Glucose Lactic Acid Calcium Total Bilirubin AST ALT Alkaline Phosphatase Creatine Kinase Troponin I Total Protein Albumin Imaging - Results Chest X-ray: Image Reviewed (s/p OHS no i/e) EKG: Image Reviewed (sr bifascicular block) Problem List - Problems (1) Acute kidney injury superimposed on CKD Code(s): S37.009A - UNSPECIFIED INJURY OF UNSPECIFIED KIDNEY, INITIAL ENCOUNTER N18.9 - CHRONIC KIDNEY DISEASE, UNSPECIFIED (2) Bradycardia Code(s): R00.1 - BRADYCARDIA, UNSPECIFIED (3) CAD (coronary artery disease) Code(s): I25.10 - ATHSCL HEART DISEASE OF [place] CORONARY ARTERY W/O ANG PCTRS Qualifiers: Coronary Disease-Associated Artery/Lesion type: [place] artery [place] vs. transplanted heart: [place] heart Associated angina: without angina Qualified Code(s): I25.10 - Atherosclerotic heart disease of [place] coronary artery without angina pectoris (4) CKD (chronic kidney disease) Code(s): N18.9 - CHRONIC KIDNEY DISEASE, UNSPECIFIED Qualifiers: Chronic kidney disease stage: stage 2 (mild) Qualified Code(s): N18.2 - Chronic kidney disease, stage 2 (mild) (5) Diastolic dysfunction Code(s): I51.9 - HEART DISEASE, UNSPECIFIED (6) Heart failure Code(s): I50.9 - HEART FAILURE, UNSPECIFIED (7) Hyperlipidemia Code(s): E78.5 - HYPERLIPIDEMIA, UNSPECIFIED Qualifiers: Hyperlipidemia type: Mixed hyperlipidemia Qualified Code(s): E78.2 - Mixed hyperlipidemia (8) Pre-syncope Code(s): R55 - SYNCOPE AND COLLAPSE (9) S/P CABG (coronary artery bypass graft) Code(s): Z95.1 - PRESENCE OF AORTOCORONARY BYPASS GRAFT (10) Shoulder pain Code(s): M25.519 - PAIN IN UNSPECIFIED SHOULDER (11) Syncope Code(s): R55 - SYNCOPE AND COLLAPSE Qualifiers: Syncope type: unspecified Qualified Code(s): R55 - Syncope and collapse (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): I45.3 - TRIFASCICULAR BLOCK (13) Back pain Code(s): M54.9 - DORSALGIA, UNSPECIFIED Qualifiers: Back pain location: low back pain Back pain laterality: midline Sciatica presence: without sciatica Qualified Code(s): M54.5 - Low back pain (14) Bronchitis Code(s): J40 - BRONCHITIS, NOT SPECIFIED ACUTE OR CHRONIC (15) Choledocholithiasis Code(s): K80.50 - CALCULUS OF BILE DUCT W/O CHOLANGITIS OR CHOLECYST W/O OBST (16) Closed head injury Code(s): S09.90XA - UNSPECIFIED INJURY OF HEAD, INITIAL ENCOUNTER Qualifiers: Encounter type: initial encounter Qualified Code(s): S09.90XA - Unspecified injury of head, initial encounter (17) DVT prophylaxis Code(s): [id number] - (18) Diabetes Code(s): E11.9 - TYPE 2 DIABETES MELLITUS WITHOUT COMPLICATIONS Qualifiers: Diabetes mellitus type: type 2 Diabetes mellitus complication status: without complication Qualified Code(s): E11.9 - Type 2 diabetes mellitus without complications (19) Head injury Code(s): S09.90XA - UNSPECIFIED INJURY OF HEAD, INITIAL ENCOUNTER (20) Hypertension Code(s): I10 - ESSENTIAL (PRIMARY) HYPERTENSION Qualifiers: Hypertension type: essential hypertension Qualified Code(s): I10 - Essential (primary) hypertension (21) Knee fracture, right Code(s): [id number] - (22) Labyrinthitis Code(s): H83.09 - LABYRINTHITIS, UNSPECIFIED EAR Qualifiers: Laterality: unspecified laterality Qualified Code(s): H83.09 - Labyrinthitis, unspecified ear (23) Lightheaded Code(s): R42 - DIZZINESS AND GIDDINESS (24) Right leg pain Code(s): M79.604 - PAIN IN RIGHT LEG (25) Shoulder contusion Code(s): S40.019A - CONTUSION OF UNSPECIFIED SHOULDER, INITIAL ENCOUNTER (26) Sinusitis Code(s): J32.9 - CHRONIC SINUSITIS, UNSPECIFIED Qualifiers: Sinusitis location: pansinusitis Chronicity: subacute Qualified Code(s): J01.40 - Acute pansinusitis, unspecified (27) UTI (urinary tract infection) Code(s): N39.0 - URINARY TRACT INFECTION, SITE NOT SPECIFIED Qualifiers: Urinary tract infection type: acute cystitis Hematuria presence: without hematuria Qualified Code(s): N30.00 - Acute cystitis without hematuria (28) Vertigo Code(s): R42 - DIZZINESS AND GIDDINESS Assessment/Plan ?severe prior [facility] echo non-diagnostic s/p cabg chf htn dm plan repeat echo IV lasix check bnp cont telemetry
[2017-05-27] MEDS: ALBUTEROL SO4 0.083% IH SOL 2.5 MG/3 ML VIAL.NEB. NEB PRN ×2 (12:39→22:46)
--- NOTE | 2017-05-27 13:35 | EKG ---
Test Reason : Blood Pressure : / mmHG Vent. Rate : 081 BPM Atrial Rate : 081 BPM P-R Int : 196 ms QRS Dur : 160 ms QT Int : 404 ms P-R-T Axes : 086 -57 077 degrees QTc Int : 469 ms NORMAL SINUS RHYTHM WITH SINUS ARRHYTHMIA RIGHT BUNDLE BRANCH BLOCK LEFT ANTERIOR FASCICULAR BLOCK BIFASCICULAR BLOCK LEFT VENTRICULAR HYPERTROPHY WITH REPOLARIZATION ABNORMALITY ABNORMAL ECG WHEN COMPARED WITH ECG OF 21-APR-2017 07:50, NO SIGNIFICANT CHANGE WAS FOUND Confirmed by MONICA MYRICK MD ([id number]) on 05/27/2017 1:35:20 PM Referred By: Confirmed By:MONICA MYRICK MD
[2017-05-27] MEDS: INSULIN SLIDING SCALE (NOVOLOG) 1 VIAL SQ SCH ×2 (17:06→22:12)
[2017-05-27] MEDS ORDERED: PT OWN MED DRAWER 7, Y5N ONE (18:20)
[2017-05-27] MEDS: ATORVASTATIN CA 20 MG TABLET (FP) PO SCH (22:11)
[2017-05-27] MEDS: HEPARIN NA (PORCINE) 5,000 UNITS/ML 1ML VIAL SQ SCH (22:11)
[2017-05-28] MEDS: INSULIN SLIDING SCALE (NOVOLOG) 1 VIAL SQ SCH ×4 (06:06→22:18)
[2017-05-28 07:35] LABS: ALBUMIN 3.4 g/dl (3.4-5.0); ANION GAP 6 (8-16); CALCIUM 8.7 mg/dL (8.5-10.1); CO2 28 mmol/L (21-32); CREATININE 1.2 mg/dL (0.55-1.02); GLUCOSE,RANDOM 104 mg/dL (74-106); SGOT/AST 19 U/L (15-37); SGPT/ALT 17 U/L (12-78)
[2017-05-28 07:37] LABS: ALK PHOS 54 U/L (45-117); BILIRUBIN,TOTAL 0.5 mg/dL (0.2-1.0)
[2017-05-28] MEDS: ASPIRIN COATED 81 MG TABLET.EC PO SCH (09:26)
[2017-05-28] MEDS: ENALAPRIL MALEATE 10 MG TABLET (FP) PO SCH (09:26)
[2017-05-28] MEDS: METOPROLOL TARTRATE 50 MG TABLET (FP) PO SCH ×2 (09:26→22:18)
[2017-05-28] MEDS: HEPARIN NA (PORCINE) 5,000 UNITS/ML 1ML VIAL SQ SCH ×2 (09:26→22:18)
[2017-05-28] MEDS ORDERED: FUROSEMIDE 40 MG/4 ML INJECTABLE VIAL IVPB SCH (10:00)
--- NOTE | 2017-05-28 10:36 | PN ---
Progress Note, Physician History of Present Illness: seen and examined today in nad. no overnight events. no new complaints. - Current Medication List Current Medications: Active Medications Acetaminophen (Tylenol -) 650 mg PO Q6H PRN PRN Reason: PAIN Albuterol Sulfate (Ventolin 0.083% Nebulizer Soln -) 1 amp NEB Q4H PRN PRN Reason: SHORT OF BREATH/WHEEZING Last Admin: 05/27/17 22:46 Dose: 1 amp Aspirin (Ecotrin -) 81 mg PO DAILY [facility] Last Admin: 05/28/17 09:26 Dose: 81 mg Atorvastatin Calcium (Lipitor -) 20 mg PO HS [facility] Last Admin: 05/27/17 22:11 Dose: 20 mg Enalapril Maleate (Vasotec -) 10 mg PO DAILY [facility] Last Admin: 05/28/17 09:26 Dose: 10 mg Furosemide (Lasix Injection -) 20 mg IVPB DAILY [facility] Last Admin: 05/28/17 09:26 Dose: 20 mg Heparin Sodium (Porcine) (Heparin -) 5,000 unit SQ BID [facility] Last Admin: 05/28/17 09:26 Dose: 5,000 unit Insulin Aspart (Novolog Vial Sliding Scale -) 0 vial SQ ACHS [facility] PRN Reason: Protocol Last Admin: 05/28/17 06:06 Dose: Not Given Metoprolol Tartrate (Lopressor -) 50 mg PO BID [facility] Last Admin: 05/28/17 09:26 Dose: 50 mg - Objective Vital Signs: Vital Signs Temperature 97.8 F 05/28/17 09:46 Pulse Rate 76 05/28/17 09:46 Respiratory Rate 18 05/28/17 09:47 Blood Pressure 145/76 05/28/17 09:46 O2 Sat by Pulse Oximetry (%) 97 05/28/17 09:47 Constitutional: Yes: No Distress, Calm, Obese Eyes: Yes: WNL, Conjunctiva Clear, EOM Intact, PERRL HENT: Yes: WNL, Atraumatic, Normocephalic Neck: Yes: WNL, Supple, Trachea Midline Cardiovascular: Yes: Regular Rate and Rhythm, Murmur, S1. No: Bradycardia, Tachycardia, Pulse Irregular, Bruit, JVD, Gallop, Rub, S2, S3, S4, Varicosities Respiratory: Yes: WNL, Regular, CTA Bilaterally. No: Rales, Rhonchi, Wheezes Gastrointestinal: Yes: WNL, Normal Bowel Sounds, Soft. No: Distention, Tenderness Musculoskeletal: Yes: WNL Extremities: Yes: WNL Edema: No Peripheral Pulses WNL: Yes Peripheral Pulses: Left Doralis Pedis: 2+, Right Dorsalis Pedis: 2+ Integumentary: Yes: WNL Neurological: Yes: Alert, Oriented Psychiatric: Yes: Alert, Oriented Labs: CBC, BMP 05/27/17 11:40 05/28/17 05:35 - ....Imaging Chest X-ray: Report Reviewed, Image Reviewed EKG: Report Reviewed, Image Reviewed Other: Report Reviewed, Image Reviewed (tele-nsr, sinus tach, episodes of PSVT- likely atach 120bpm) Assessment/Plan 87 year old woman with a history of HTN, HLD, DMII, severe , CAD s/p CABG, Chronic diastolic CHF, recurrent episodes of vertigo, near syncope, and syncope , admitted with productive cough with associated sob, and 1 episode of syncope in the ambulance after coughing. Syncope-likely vasovagal, but may be related to severe -pt was evaluated 02/2017 for AVR and was deemed to not be a good candidate due to advanced age and dementia -cardiac enzymes wnl -no sig arrhythmias on ekg that would cause syncope -recent carotid doppler showed no sig stenosis -will hold IV Lasix to avoid dehydration as may contribute to her symptoms PSVT-episodes that appear to be atrial tachycardia at 120bpm, no symptoms correlating -cont metoprolol at current dose and can uptitrate if needed for PSVT suppression Chronic diastolic CHF -currently euvolemic on exam and radiographically -hold IV Lasix -clarify home medical regimen, if on po Lasix at home would resume this, otherwise can hold lasix HTN-adequately controlled -cont enalapril and metoprolol CAD s/p CABG-stable -cont ASA and statin
--- NOTE | 2017-05-28 10:43 | PN ---
Progress Note (short form) - Note Progress Note: pt seen/ examined sitting in chair . no complains feels ok. cardiology consult/ f/u noted appreciated denies cp/ sob. Vital Signs Temp 97.8 F 05/28/17 09:46 Pulse 76 05/28/17 09:46 Resp 18 05/28/17 09:47 BP 145/76 05/28/17 09:46 Pulse Ox 97 05/28/17 09:47 Intake & Output 05/27/17 05/27/17 05/28/17 11:59 23:59 11:59 Intake Total 100 100 Balance 100 100 Weight 152 lb 12.8 oz 153 lb 3.2 oz Intake: Oral 100 100 Other: Voiding Method Bedside Commode Bedside Commode Bedside Commode # Unmeasured Voids Void 2 Bowel Movement Yes No # Bowel Movements 1 Weight Measurement Method Standing Scale Standing Scale Active Medications Acetaminophen (Tylenol -) 650 mg PO Q6H PRN PRN Reason: PAIN Albuterol Sulfate (Ventolin 0.083% Nebulizer Soln -) 1 amp NEB Q4H PRN PRN Reason: SHORT OF BREATH/WHEEZING Last Admin: 05/27/17 22:46 Dose: 1 amp Aspirin (Ecotrin -) 81 mg PO DAILY [facility] Last Admin: 05/28/17 09:26 Dose: 81 mg Atorvastatin Calcium (Lipitor -) 20 mg PO HS [facility] Last Admin: 05/27/17 22:11 Dose: 20 mg Enalapril Maleate (Vasotec -) 10 mg PO DAILY [facility] Last Admin: 05/28/17 09:26 Dose: 10 mg Heparin Sodium (Porcine) (Heparin -) 5,000 unit SQ BID [facility] Last Admin: 05/28/17 09:26 Dose: 5,000 unit Insulin Aspart (Novolog Vial Sliding Scale -) 0 vial SQ ACHS [facility] PRN Reason: Protocol Last Admin: 05/28/17 06:06 Dose: Not Given Metoprolol Tartrate (Lopressor -) 50 mg PO BID [facility] Last Admin: 05/28/17 09:26 Dose: 50 mg CBC, BMP 05/27/17 11:40 05/28/17 05:35 Physical Examination Constitutional: Yes: No Distress, Calm Eyes: Yes: Conjunctiva Clear Neck: Yes: Supple Cardiovascular: Yes: Regular Rate and Rhythm Respiratory: Yes: CTA Bilaterally Gastrointestinal: Yes: Normal Bowel Sounds, Soft, non tender Edema: No Neurological: Yes: Alert, Other (non focal) Psychiatric: Yes: Alert Imaging - Results Chest X-ray: Report Reviewed Problem List - Problems (1) S/P CABG (coronary artery bypass graft) Code(s): Z95.1 - PRESENCE OF AORTOCORONARY BYPASS GRAFT (2) Syncope Code(s): R55 - SYNCOPE AND COLLAPSE Qualifiers: Syncope type: unspecified Qualified Code(s): R55 - Syncope and collapse (3) Diabetes Code(s): E11.9 - TYPE 2 DIABETES MELLITUS WITHOUT COMPLICATIONS Qualifiers: Diabetes mellitus type: type 2 Diabetes mellitus complication status: without complication Qualified Code(s): E11.9 - Type 2 diabetes mellitus without complications (4) Hypertension Code(s): I10 - ESSENTIAL (PRIMARY) HYPERTENSION Qualifiers: Hypertension type: essential hypertension Qualified Code(s): I10 - Essential (primary) hypertension Assessment/Plan stable started on lasix. severe as-- not surgical candidate . check bnp echo will discuss with cardiology will follow discussed with nursing staff also. Problem List - Problems (1) S/P CABG (coronary artery bypass graft) Code(s): Z95.1 - PRESENCE OF AORTOCORONARY BYPASS GRAFT (2) Syncope Code(s): R55 - SYNCOPE AND COLLAPSE Qualifiers: Qualified Code(s): R55 - Syncope and collapse (3) Diabetes Code(s): E11.9 - TYPE 2 DIABETES MELLITUS WITHOUT COMPLICATIONS Qualifiers: Qualified Code(s): E11.9 - Type 2 diabetes mellitus without complications (4) Hypertension Code(s): I10 - ESSENTIAL (PRIMARY) HYPERTENSION Qualifiers: Qualified Code(s): I10 - Essential (primary) hypertension
--- NOTE | 2017-05-28 12:39 | EKG ---
Test Reason : Blood Pressure : / mmHG Vent. Rate : 103 BPM Atrial Rate : 103 BPM P-R Int : 180 ms QRS Dur : 144 ms QT Int : 378 ms P-R-T Axes : 088 -71 076 degrees QTc Int : 495 ms SINUS TACHYCARDIA LEFT AXIS DEVIATION RIGHT BUNDLE BRANCH BLOCK LEFT VENTRICULAR HYPERTROPHY WITH REPOLARIZATION ABNORMALITY ABNORMAL ECG WHEN COMPARED WITH ECG OF 26-MAY-2017 13:04, NO SIGNIFICANT CHANGE WAS FOUND Confirmed by CURTIS VEGA MD ([id number]) on 05/28/2017 12:39:27 PM Referred By: Confirmed By:CURTIS VEGA MD
[2017-05-28] MEDS: ATORVASTATIN CA 20 MG TABLET (FP) PO SCH (22:18)
[2017-05-29] MEDS: ALBUTEROL SO4 0.083% IH SOL 2.5 MG/3 ML VIAL.NEB. NEB PRN (05:43)
[2017-05-29] MEDS: INSULIN SLIDING SCALE (NOVOLOG) 1 VIAL SQ SCH ×2 (06:47→11:28)
--- NOTE | 2017-05-29 09:04 | PN ---
Progress Note, Physician Chief Complaint: sitting in chair comfortably - Current Medication List Current Medications: Active Medications Acetaminophen (Tylenol -) 650 mg PO Q6H PRN PRN Reason: PAIN Last Admin: 05/28/17 22:19 Dose: 650 mg Albuterol Sulfate (Ventolin 0.083% Nebulizer Soln -) 1 amp NEB Q4H PRN PRN Reason: SHORT OF BREATH/WHEEZING Last Admin: 05/29/17 05:43 Dose: 1 amp Aspirin (Ecotrin -) 81 mg PO DAILY [facility] Last Admin: 05/28/17 09:26 Dose: 81 mg Atorvastatin Calcium (Lipitor -) 20 mg PO HS [facility] Last Admin: 05/28/17 22:18 Dose: 20 mg Enalapril Maleate (Vasotec -) 10 mg PO DAILY [facility] Last Admin: 05/28/17 09:26 Dose: 10 mg Heparin Sodium (Porcine) (Heparin -) 5,000 unit SQ BID [facility] Last Admin: 05/28/17 22:18 Dose: 5,000 unit Insulin Aspart (Novolog Vial Sliding Scale -) 0 vial SQ ACHS [facility] PRN Reason: Protocol Last Admin: 05/29/17 06:47 Dose: Not Given Metoprolol Tartrate (Lopressor -) 50 mg PO BID [facility] Last Admin: 05/28/17 22:18 Dose: 50 mg - Objective Vital Signs: Vital Signs Temperature 98.0 F 05/29/17 06:47 Pulse Rate 62 05/29/17 06:47 Respiratory Rate 20 05/29/17 06:47 Blood Pressure 146/64 05/29/17 06:47 O2 Sat by Pulse Oximetry (%) 94 L 05/29/17 03:00 Constitutional: Yes: Calm Cardiovascular: Yes: Regular Rate and Rhythm, Murmur (3/6 RSB) Respiratory: Yes: CTA Bilaterally Gastrointestinal: Yes: Soft Edema: No Labs: CBC, BMP 05/27/17 11:40 05/28/17 05:35 Laboratory Tests 05/26/17 05/27/17 05/28/17 13:55 11:40 05:35 WBC 6.7 Hct 35.2 Plt Count 201 Sodium 140 Potassium 4.1 Creatinine 1.2 H Creatine Kinase 105 Troponin I < 0.02 - ....Imaging EKG: Image Reviewed, Other (TELE: NSR w/ baseline IVCD. Rare VPCs and PACs with compensatory pauses, no pauses > 3 seconds) Assessment/Plan 87 year old woman with a history of HTN, HLD, DMII, severe , CAD s/p CABG, Chronic diastolic CHF, recurrent episodes of vertigo, near syncope, and syncope , admitted with productive cough with associated sob, and 1 episode of syncope in the ambulance after coughing. Syncope-likely vasovagal, but may be related to severe -pt was evaluated 02/2017 for AVR at [facility] and was deemed to not be a good candidate due to advanced age and dementia -cardiac enzymes wnl -no sig arrhythmias on ekg that would cause syncope -recent carotid doppler showed no sig stenosis -will hold IV Lasix to avoid dehydration as may contribute to her symptoms PSVT- atrial tachycardia in 120s, no symptoms correlating. Now resolved. -cont metoprolol at current dose Chronic diastolic CHF -currently euvolemic on exam and radiographically -hold IV Lasix CAD s/p CABG-stable -cont ASA and statin
[2017-05-29] MEDS: ASPIRIN COATED 81 MG TABLET.EC PO SCH (09:25)
[2017-05-29] MEDS: METOPROLOL TARTRATE 50 MG TABLET (FP) PO SCH (09:25)
[2017-05-29] MEDS: ENALAPRIL MALEATE 10 MG TABLET (FP) PO SCH (09:25)
[2017-05-29] MEDS: HEPARIN NA (PORCINE) 5,000 UNITS/ML 1ML VIAL SQ SCH (09:25)
[2017-05-29 09:45] VITALS: BP 115/66; TEMP 98.3
[2017-05-29 10:11] VITALS: PULSE 64
--- NOTE | 2017-05-29 10:24 | DS ---
Physical Examination Vital Signs: Vital Signs Temperature 98.3 F 05/29/17 09:44 Pulse Rate 64 05/29/17 10:00 Respiratory Rate 20 05/29/17 09:44 Blood Pressure 115/66 05/29/17 09:44 O2 Sat by Pulse Oximetry (%) 95 05/29/17 10:00 Constitutional: Yes: No Distress Cardiovascular: Yes: Regular Rate and Rhythm Respiratory: Yes: CTA Bilaterally Gastrointestinal: Yes: Normal Bowel Sounds, Soft, Abdomen, Obese. No: Distention, Tenderness Edema: No Psychiatric: Yes: Alert Labs: CBC, BMP 05/27/17 11:40 05/28/17 05:35 Discharge Summary Reason For Visit: SYNCOPE Current Active Problems Acute kidney injury superimposed on CKD (Acute) Bradycardia (Acute) CAD (coronary artery disease) (Acute) CKD (chronic kidney disease) (Acute) Diastolic dysfunction (Acute) Heart failure (Acute) Hyperlipidemia (Acute) Pre-syncope (Acute) S/P CABG (coronary artery bypass graft) (Acute) Shoulder pain (Acute) Syncope (Acute) Trifascicular block (Acute) Hospital Course: Admitted for syncope seen by Cardiology Was admitted to telemetry, ACS ruled out Lasix on hold as she is euvolemic Possibly syncopized due to dehydration Telemetry noted Pt is ambulatory but unsteady and has a walker at home Pt is stable for dc home , will resume her services She should follow up with Dr Argueta as outpt Condition: Good - Instructions Referrals: Noel Mcgee MD [Primary Care Provider] - Disposition: HOME - Home Medications Comprehensive Discharge Medication List: Ambulatory Orders Unobtainable [Unobtainable] 05/26/17
== END 2017-05-29 13:30 | disposition home or self-care (01) ==
LOC: JER 12:46 → UNDOADMOB 17:27 → JERBED 17:27 → INTOOBSV 17:27 → J4W 19:40 → JERBED 19:40 → J4W 05-27 11:12
PROVIDERS: ADMIT Internal Medicine; ATTEND Internal Medicine
PROC: 3E033GC Introduction of Other Therapeutic Substance into Peripheral Vein, Percutaneous Approach (ICD-10-PCS; principal; 2017-05-27)
PROC: 3E013GC Introduction of Other Therapeutic Substance into Subcutaneous Tissue, Percutaneous Approach (ICD-10-PCS; 2017-05-27)
DX: R55 Syncope and collapse (principal); I12.9 Hypertensive chronic kidney disease with stage 1 through stage 4 chronic kidney disease, or unspecified chronic kidney disease; E11.22 Type 2 diabetes mellitus with diabetic chronic kidney disease; N18.2 Chronic kidney disease, stage 2 (mild); N17.9 Acute kidney failure, unspecified; R00.1 Bradycardia, unspecified; I25.10 Atherosclerotic heart disease of native coronary artery without angina pectoris; I50.32 Chronic diastolic (congestive) heart failure; I51.9 Heart disease, unspecified; I45.3 Trifascicular block; I35.0 Nonrheumatic aortic (valve) stenosis; E78.5 Hyperlipidemia, unspecified; M19.90 Unspecified osteoarthritis, unspecified site; M25.561 Pain in right knee; G89.29 Other chronic pain; M25.519 Pain in unspecified shoulder; M54.9 Dorsalgia, unspecified; J40 Bronchitis, not specified as acute or chronic; Z95.1 Presence of aortocoronary bypass graft
CPT/HCPCS: 36415; 71010-TC; 80053; 80162; 82550; 83036; 83605; 83735; 83880; 84484; 85025; 93005; 93010; 94640; 99283-25; G0378; J1644

== ENCOUNTER 2017-10-19 07:16 | Emergency (ER) | payer OTHER ==
[2017-10-19 07:40] VITALS: TEMP 99.4; BMI 30.1
--- NOTE | 2017-10-19 07:51 | PDOC ---
History of Present Illness - General Chief Complaint: Injury Stated Complaint: HEAD INJURY,FALL Time Seen by Provider: 10/19/17 07:34 History Source: Patient, Family - History of Present Illness Occurred: reports: this morning Pain Location: reports: head Method of Injury: Yes: fall Past History - Past Medical History Allergies/Adverse Reactions: Allergies Allergy/AdvReac Type Severity Reaction Status Date / Time No Known Allergies Allergy Verified 10/19/17 07:32 Home Medications: Ambulatory Orders Aspirin Coated [Ecotrin -] 81 mg PO DAILY #30 tab 05/29/17 Atorvastatin Ca [Lipitor] 20 mg PO HS #30 tablet 05/29/17 Enalapril Maleate [Vasotec -] 10 mg PO DAILY #30 tablet 05/29/17 Metoprolol Tartrate [Lopressor -] 50 mg PO BID #60 tablet 05/29/17 Meclizine HCl 25 mg PO DAILY 10/19/17 Anemia: No Asthma: No Cancer: No Cardiac Disorders: Yes (CABG, CAD) CVA: No COPD: No CHF: Yes Dementia: No Diabetes: Yes GI Disorders: No Disorders: No HTN: Yes Hypercholesterolemia: Yes Liver Disease: No Seizures: No Thyroid Disease: No - Surgical History Abdominal Surgery: Yes Appendectomy: No Cardiac Surgery: Yes (BYPASS) Cholecystectomy: Yes Lung Surgery: No Neurologic Surgery: No Orthopedic Surgery: No - Suicide/Smoking/Psychosocial Hx Smoking Status: No Smoking History: Never smoked Have you smoked in the past 12 months: No Number of Cigarettes Smoked Daily: 0 Information on smoking cessation initiated: No Hx Alcohol Use: No Drug/Substance Use Hx: No Substance Use Type: None Hx Substance Use Treatment: No Review of Systems - Review of Systems HEENTM: No: Blurred Vision Respiratory: No: Shortness of Breath Cardiac (ROS): No: Chest Pain ABD/GI: No: Nausea, Vomiting Neurological: No: Headache, Dizziness *Physical Exam - Vital Signs Last Vital Signs Temp Pulse Resp BP Pulse Ox 99.4 F 68 14 161/85 100 10/19/17 07:19 10/19/17 07:19 10/19/17 07:19 10/19/17 07:19 10/19/17 07:19 - Physical Exam Comments: 10/19/17 08:06 Pt sleeping comfortably , easily arousable, denies any symptoms at this time General Appearance: Yes: Appropriately Dressed. No: Apparent Distress HEENT: positive: EOMI, RAY, Normal Voice Neck: positive: Supple. negative: Tender Respiratory/Chest: positive: Lungs Clear, Normal Breath Sounds. negative: Respiratory Distress Cardiovascular: positive: Regular Rate, S1, S2 Gastrointestinal/Abdominal: positive: Soft. negative: Tender Extremity: positive: Normal Inspection, Other (no swelling, deformity, FROMI to b/l LE) Integumentary: positive: Dry, Warm Neurologic: positive: Fully Oriented, Alert, Normal Mood/Affect Heart Score/ECG Review - ECG Intrepretation Comment:: 10/19/17 10:07 EKG w/ old RBBB ED Treatment Course - LABORATORY CBC & Chemistry Diagram: 10/19/17 07:52 10/19/17 07:52 - RADIOLOGY Radiology Studies Ordered: Category Date Time Status HEAD CT WITHOUT CONTRAST [CT] Stat CT Scan 10/19/17 07:47 Ordered HIP & PELVIS-LEFT [RAD] Stat Radiology 10/19/17 07:48 Ordered HIP & PELVIS-RIGHT [RAD] Stat Radiology 10/19/17 07:48 Ordered SPINE-LUMBAR SACRAL [RAD] Stat Radiology 10/19/17 07:48 Ordered Medical Decision Making - Medical Decision Making 10/19/17 07:49 79-year-old female, history of hypertension, hyperlipidemia, aortic stenosis, CHF, status post CABG, on asa, diabetes, vertigo, chronic right knee pain, ambulates with walker, brought in by son after unwitnessed fall. As per son shortly after 6 AM today, patient walked to bathroom with her walker, but before she could turn on the lights, she tripped and fell striking head against a plastic garbage can as per son. States he heard the noise from his bedroom and found patient lying on her back, awake and that pt was able to tell son what happened. Patient denies any LOC and no headache, dizziness, nausea or vomiting at this time. Also, denying neck, back or hip pain. As per son. Patient was able to ambulate since fall. Pt denies CP or dizziness prior to fall See exam Head injury 2/2 most likely mechanical fall per hx, pt able to give details of fall Denies LOC, TORRES, dizziness, n/v On asa Able to ambulate since fall No e/o serious injuries on exam -CT head -XRs -labs/ekg given unwitnessed fall 10/19/17 07:52 10/19/17 10:06 EKG, labs, CT head and xrays all unremarkable. Pt remains well appearing, currently sitting up on stretcher and signing ED forms. Able to ambulate and verito po in ED. Stable for discharge in care of family w/ PMD f/u 10/19/17 10:10 *DC/Admit/Observation/Transfer Diagnosis at time of Disposition: Fall Qualifiers: Encounter type: initial encounter Qualified Code(s): W19.XXXA - Unspecified fall, initial encounter Head injury Qualifiers: Encounter type: initial encounter Qualified Code(s): S09.90XA - Unspecified injury of head, initial encounter - Discharge Dispostion Disposition: HOME Condition at time of disposition: Improved - Referrals Referrals: Noel Mcgee MD [Primary Care Provider] - - Patient Instructions Printed Discharge Instructions: DI for Closed Head Injury Additional Instructions: Please follow up with your PMD next week - Post Discharge Activity
[2017-10-19 08:32] LABS: ALBUMIN 3.4 g/dl (3.4-5.0); ANION GAP 8 (8-16); BASOPHIL 0.7 % (0-2.0); BILIRUBIN,TOTAL 0.3 mg/dL (0.2-1.0); CALCIUM 8.6 mg/dL (8.5-10.1); CO2 22 mmol/L (21-32); CREATININE 1.3 mg/dL (0.55-1.02); EOSINOPHIL 4.4 % (0-4.5); GLUCOSE,RANDOM 97 mg/dL (74-106); MCH 28.7 pg (25.7-33.7); MCHC 32.9 g/dl (32.0-36.0); MEAN CELL VOLUME 87.2 fl (80-96); MEAN PLT VOLUME 7.1 fl (7.5-11.1); NEUTROPHILS 52.9 % (42.8-82.8); PLATELET COUNT 249 K/MM3 (134-434); RDW 14.5 % (11.6-15.6); SGOT/AST 14 U/L (15-37); SGPT/ALT 16 U/L (12-78); TOT PROT 6.6 g/dl (6.4-8.2)
[2017-10-19 08:35] LABS: ALK PHOS 77 U/L (45-117); CPK 127 IU/L (26-192); TROPONIN I < 0.02 ng/ml (0.00-0.05)
[2017-10-19 09:41] LABS: URINE APPEARANCE CLEAR; URINE BILIRUBIN NEGATIVE (NEGATIVE); URINE BLOOD NEGATIVE (NEGATIVE); URINE COLOR STRAW; URINE GLUCOSE (UA) NEGATIVE (NEGATIVE); URINE KETONE NEGATIVE (NEGATIVE); URINE LEUK ESTERASE NEGATIVE (NEGATIVE); URINE NITRITE NEGATIVE (NEGATIVE); URINE PROTEIN NEGATIVE (NEGATIVE); URINE UROBILINOGEN NEGATIVE mg/dL (0.2-1.0)
[2017-10-19 10:12] VITALS: BP 155/71; PULSE 69
--- NOTE | 2017-10-19 10:20 | EKG ---
Test Reason : Blood Pressure : / mmHG Vent. Rate : 068 BPM Atrial Rate : 068 BPM P-R Int : 206 ms QRS Dur : 164 ms QT Int : 474 ms P-R-T Axes : 076 -58 064 degrees QTc Int : 504 ms NORMAL SINUS RHYTHM WITH 1ST DEGREE A-V BLOCK LEFT AXIS DEVIATION RIGHT BUNDLE BRANCH BLOCK ABNORMAL ECG WHEN COMPARED WITH ECG OF 27-MAY-2017 10:49, VENT. RATE HAS DECREASED BY 35 BPM Confirmed by MD LUIS, JAD ([id number]) on 10/19/2017 10:19:55 AM Referred By: Confirmed By:JAD SMITH MD
[2017-10-19 18:04] LABS: URINE LEUK ESTERASE Negative (NEGATIVE)
== END 2017-10-19 10:16 | disposition home or self-care (01) ==
LOC: JER 07:16
DX: S09.90XA Unspecified injury of head, initial encounter (principal); W01.0XXA Fall on same level from slipping, tripping and stumbling without subsequent striking against object, initial encounter; Y93.89 Activity, other specified; Y92.002 Bathroom of unspecified non-institutional (private) residence as the place of occurrence of the external cause; I25.10 Atherosclerotic heart disease of native coronary artery without angina pectoris; E11.9 Type 2 diabetes mellitus without complications; I10 Essential (primary) hypertension; E78.00 Pure hypercholesterolemia, unspecified; I50.9 Heart failure, unspecified
CPT/HCPCS: 36415; 70450-TC; 71010-TC; 72100-TC; 73523-TC; 80053; 81003; 82550; 84484; 85025; 93005; 93010; 99284-25